=== PATIENT | male | born 1970 | race Two or more races ===

== ENCOUNTER 2025-04-17 10:51 | Inpatient (IN) | payer OTHER ==
[~2025-04-17] VITALS: Ht 185.4 cm; Wt 98.2 kg
--- NOTE | 2025-04-17 12:11 | ED.PDOC ---
History of Present Illness HPI Comments This is a 54-year-old male with past medical history of diabetes, paraplegic (due to prolapsed disc), brought to the hospital due to worsening perianal wound. Per patient, he has been wheelchair/bed-bound since 20 years, and also has a perianal wound for 20 years which has worsened since 1 month. He also rep orts of generalized weakness, decreased oral intake cough, shortness of breaths, and foul-smelling of perianal area. He denies fever, chest pain, nausea vomiting. He does not have control on bladder and bowel movement. Home meds: Metformin Chief Complaint: Wound Check Time Seen by MD: 10:53 Reviewed Notes: Nurses Notes Allergies: Coded Allergies: NO KNOWN ALLERGIES (Unverified , 04/17/25) Information Source: Patient Mode of Arrival: Wheelchair Past Medical History Past Medical History (Other): Diabetes Constitutional: reports: fatigue, weakness; denies: chills, diaphoresis, fever, malaise, sweats, others EENTM: denies: blurred vision, double vision, ear bleeding, ear discharge, ear drainage, ear pain, ear ringing, eye pain, eye redness, hearing loss, mouth pain, mouth swelling, nasal discharge, nose bleeding, nose congestion, nose pain, photophobia, tearing, throat pain, throat swelling, voice changes, others Respiratory: reports: cough, shortness of breath; denies: hemoptysis, orthopnea, SOB at rest, SOB with excertion, stridor, wheezing, others Cardiovascular: denies: chest pain, dizzy spells, diaphoresis, Dyspnea on exertion, edema, irregular heart beat, left arm pain, lightheadedness, palpitations, PND, syncope, others Gastrointestinal: denies: abdomen distended, abdominal pain, blood streaked bowels, constipated, diarrhea, dysphagia, difficulty swallowing, hematemesis, melena, nausea, poor appetite, poor fluid intake, rectal bleeding, rectal pain, vomiting, others Genitourinary: denies: burning, dysuria, flank pain, frequency, hematuria, incontinence, penile discharge, penile sore, pain, testicle pain, testicle swelling, urgency, others Neurological: denies: dizziness, fainting, headache, left sided numbness, left sided weakness, numbness, paresthesia, pre-existing deficit, right sided numbness, right sided weakness, seizure, speech problems, tingling, tremors, weakness, others Musculoskeletal: denies: back pain, gout, joint pain, joint swelling, muscle pa in, muscle stiffness, neck pain, others Integumetry: denies: bruises, change in color, change in hair/nails, dryness, laceration, lesions, lumps, rash, wounds, others Allergic/Immunocompromised: denies: Difficulty Healing, Frequent Infections, Hives, Itching, others Hematologic/Lymphatic: denies: anemia, blood clots, easy bleeding, easy bruising, swollen glands, others Endocrine: denies: excessive hunger, excessive sweating, excessive thirst, excessive urination, flushing, intolerance to cold, intolerance to heat, unexplained weight gain, unexplained weight loss, others Psychiatric: denies: anxiety, bipolar disorder, depression, hopeless, panic disorder, schizophrenia, sleepless, suicidal, others Physical Exam General Appearance: No Apparent Distress, Normal HEENT: Normal ENT Inspection, Pharynx Normal, TMs Normal Neck: Full Range of Motion, Non-Tender, Normal, Normal Inspection Respiratory: Chest Non-Tender, Lungs Clear, No Accessory Muscle Use, No Respiratory Distress, Normal Breath Sounds Cardiovascular: No Edema, No JVD, No Murmur, No Gallop, Normal Peripheral Pulses, Regular Rate/Rhythm Breast Exam: Deferred Gastrointestinal: No Organomegaly, Non Tender, No Pulsatile Mass, Normal Bowel Sounds, Soft Genitalia: Deferred Pelvic: Deferred Rectal: Deferred Extremities: No calf tenderness, Normal capillary refill, Normal inspection, Normal range of motion, Non-tender, No pedal edema Musculoskeletal : Apperance: Normal Neurologic: Alert, retort kiln burner II-XII nml as Tested, No Motor Deficits, Normal Affect, Normal Mood, No Sensory Deficits Cerebellar Function: Normal Reflexes: Normal Skin: Dry, Normal Color, Warm Lymphatic: No Adenopathy Was a procedure done? Was a procedure done?: No Differential Dx Considerations may include: Sepsis, perianal area infected wound, abscess, X-Ray, Labs, Meds, VS Vital Signs Date Time Temp Pulse Resp B/P (MAP) Pulse Ox O2 Delivery O2 Flow Rate FiO2 04/17/25 11:01 98.0 105 16 116/60 98 98.0 Lab Test 04/17/25 15:04/17/25 13:00 Range/Units Lactic Acid Level 2.6 *H 2.9 *H 0.4-2.0 mmol/L White Blood Count 15.8 H 4.4-10.8 10^3/uL Red Blood Count 3.33 L 4.5-5.90 10^6/uL Hemoglobin 7.8 L 13.5-17.5 g/dL Hematocrit 24.4 L 41.0-53.0 % Mean Corpuscular Volume 73.0 L 80.0-100.0 fL Mean Corpuscular Hemoglobin 23.4 L 28.0-32.0 pg Mean Corpuscular Hemoglobin Concent 32.1 32.0-36.0 g/dL Red Cell Distribution Width 18.9 H 11.8-14.3 % Platelet Count 372 140-450 10^3/uL Mean Platelet Volume 7.6 6.9-10.8 fL Neutrophils (%) (Auto) 37.0-80.0 % Lymphocytes (%) (Auto) 10.0-50.0 % Monocytes (%) (Auto) 0.0-12.0 % Eosinophils (%) (Auto) 0.0-7.0 % Basophils (%) (Auto) 0.0-2.0 % Neutrophils # (Auto) 1.6-8.6 10 ^3/uL Lymphocytes # (Auto) 0.4-5.4 10 ^3/uL Monocytes # (Auto) 0-1.3 10 ^3/uL Eosinophils # (Auto) 0-0.8 10 ^3/uL Basophils # (Auto) 0-0.2 10 ^3/uL Differential Total Cells Counted 100.0 100 Neutrophils % (Manual) 67 37.0-80.0 Band Neutrophils % (Manual) 31 Lymphocytes % (Manual) 2 L 10.0-50.0 Monocytes % (Manual) 0 0-12 Eosinophils % (Manual) 0 0-7 Basophils % (Manual) 0 0.0-2.0 Metamyelocytes % (manual) 0 Myelocytes % (Manual) 0 Promyelocytes % (Manual) 0 Blast Cells % (Manual) 0 Nucleated Red Blood Cells % Reactive Lymphocytes 0 Platelet Estimate Adequate Hypochromasia (manual) Moderate Microcytosis Moderate Ovalocytes Few Warren Cells Few Prothrombin Time 12.6 H 9.3-11.8 sec Prothrombin Time INR 1.21 H 0.9-1.15 Sodium Level 138 136-145 mmol/L Potassium Level 3.5 3.5-5.1 mmol/L Chloride Level 107 98-107 mmol/L Carbon Dioxide Level 16 L 20-31 mmol/L Anion Gap 15 5-15 Blood Urea Nitrogen 45 H 9-23 mg/dL Creatinine 2.01 H 0.700-1.30 mg/dL Glomerular Filtration Rate Calc 39 >90 mL/min BUN/Creatinine Ratio 22.4 H 10.0-20.0 Serum Glucose 167 H 74-106 mg/dL Calcium Level 7.9 L 8.7-10.4 mg/dL Total Bilirubin 0.9 0.2-1.0 mg/dL Aspartate Amino Transferase (AST) 37 13-40 U/L Alanine Aminotransferase (ALT) 36 7-40 U/L Alkaline Phosphatase 242 H 46-116 U/L Total Protein 6.9 5.7-8.2 g/dL Albumin 2.8 L 3.2-4.8 g/dL Time of 1ST Reevaluation: 17:07 Reevaluation 1ST: Unchanged Patient Education/Counseling: Diagnosis, Treatment, Prognosis, Need For Follow Up Family Education/Counseling: Diagnosis, Treatment, Prognosis, Need For Follow Up Comments Patient came to the hospital due to perineal area ulcer. Patient was vitally stable. CBC, CMP Check CT scan performed, showed Cardiomegaly, coronary artery disease, and small pericardial effusion, Bilateral lung base interstitial prominence and bilateral pleural effusion suggestive of CHF, Hepatosplenomegaly,Emphysematous cystitis, Extensive gas within the soft tissues of the left gluteal region, perineum, left adductor musculature, and left upper thigh with pelvic and upper thigh subcutaneous edema, greater on the left. This appearance is suggestive of gas forming bacterial infection. Recommend surgical consultation if not already obtained and Low volume pelvic ascites Patient was given IV fluid, vancomycin Rocephin. On subsequent checkup, patient was feeling the same. Patient will be admitted for inpatient care and possible expert opinion SEPSIS Sepsis Screen Date sepsis recognized/suspect: Apr 17, 2025 Time Sepsis recognized/suspect: 1103 Recent Procedure: No On Antibiotic Therapy: No Respiratory Rate >20: No Heart Rate >90: Yes Temp<36 C (96.8 F) or >38.3 C: No SBP <90 or MAP <65 mmHG: No New Acute Mental Status Change: No Is the patient on CPAP, BIPAP,: No Physician Orders Blood Culture (04/17/25 12:11) Wound Culture W/ Gs (04/17/25 12:11) * Wound Consult (04/17/25 ) Ct Ab Pel Wo Con-No Oral Or Iv (04/17/25 12:11) Vancomycin Per Pharmacy (04/17/25 12:15) Complete Blood Count (04/18/25 04:00) Creatinine (04/18/25 04:00) Vancomycin,Random (04/18/25 04:00) Vital Signs Date Time Temp Pulse Resp B/P (MAP) Pulse Ox O2 Delivery O2 Flow Rate FiO2 04/17/25 11:01 98.0 105 16 116/60 98 98.0 Laboratory Tests Test 04/17/25 13:00 04/17/25 15:21 Lactic Acid Level 2.9 mmol/L (0.4-2.0) *H 2.6 mmol/L (0.4-2.0) *H White Blood Count 15.8 10^3/uL (4.4-10.8) H Departure 1 Departure Time of Disposition: 17:09 Impression: Primary Impression: Sepsis Additional Impression: Decubitus ulcer, infected Disposition: ADMITTED INPATIENT Admit to: Med Surg Condition: Guarded Critical Care Note Critical Care Time?: Yes (45 min-critical care time only) Stability Stability form required: No Heart Score Heart Score: Heart Score Response (Comments) Value History N/A 0 EKG N/A 0 Age N/A 0 Risk Factors N/A 0 Troponin N/A 0 Total 0 OZZIE RAHMAN Apr 17, 2025 12:11
[2025-04-17] MEDS ORDERED: VANCOMYCIN PER PHARMACY 0 MG IV SCH (12:15)
--- NOTE | 2025-04-17 13:20 | DVH ---
EXAM: CT CT AB PEL WO CON-NO ORAL OR IV HISTORY: perineal area bedsore, abdominal pain COMPARISON: None TECHNIQUE: Helical CT images of the abdomen and pelvis were performed without IV contrast. Sagittal a nd coronal reformatted images were obtained. This CT exam was performed using one or more of the foll owing dose reduction techniques: Automated exposure control, adjustment of the mA and/or kv according to patient size, or the use of iterative reconstruction techniques. Radiation Dose: Abdomen/Pelvis: CTDIvol 17.5 mGy, DLP 1490.08 mGy*cm. FINDINGS: CT abdomen: There is interstitial prominence in the lung bases. There are small to moderate right an d small left pleural effusions. The heart is enlarged. There are coronary artery calcifications. The re is a small pericardial effusion. The central pulmonary arteries may be ectatic, not fully imaged here. There is mild bilateral gynecomastia. There is a left upper quadrant splenule. The liver measu res 20 cm longitudinal. The spleen measures 14 cm longitudinal. The noncontrast gallbladder, pancrea s, bilateral kidneys, and left adrenal gland are unremarkable. There is a right adrenal 15 mm nodule (image 30, series 2) with central density 4 HU on this noncontrast study. No abdominal aortic aneurys m. There are atherosclerotic calcifications of the abdominal aorta and major branches. 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 There are mildly e nlarged periaortic retroperitoneal lymph nodes distally, likely reactive. CT pelvis: No abnormal bowel dilatation or free air. The appendix is not dilated. There is low volum e free fluid in the pelvis. There are small bilateral fatty inguinal indirect hernias. There is gas w ithin the wall of the urinary bladder. There is urinary bladder wall thickening. There is extensive gas in the soft tissues of the left gluteal region, perineum, adductor musculature and upper thigh in volving subcutaneous fat, muscles, and intermuscular fascia. A small amount of gas crosses the midlin e to the right perineum. There is subcutaneous fat of the pelvis and thighs, greater on the left. No evidence of formed abscess at this time. Gas abuts the left ischial tuberosity without evidence of ad vanced osteomyelitis at this time. There is advanced lumbar degenerative disc disease and facet arthr opathy. There is severe right and moderate to severe left hip osteoarthritis, with vacuum phenomenon in the right hip. IMPRESSION: 1. Cardiomegaly, coronary artery disease, and small pericardial effusion. 2. Bilateral lung base interstitial prominence and bilateral pleural effusion suggestive of CHF. 3. Hepatosplenomegaly. 4. Emphysematous cystitis. 5. Extensive gas within the soft tissues of the left gluteal region, perineum, left adductor musculat ure, and left upper thigh with pelvic and upper thigh subcutaneous edema, greater on the left. This a ppearance is suggestive of gas forming bacterial infection. Recommend surgical consultation if not a lready obtained. 6. Low volume pelvic ascites. 7. Advanced lumbar degenerative disc disease and facet arthropathy; severe right and moderate to madonna re left hip osteoarthritis. 8. No evidence of bowel obstruction, acute appendicitis, or other acute process in the abdomen or pel vis.
[2025-04-17 13:51] LABS: Hemoglobin 7.8 g/dL (13.5-17.5); Mean Corpuscular Hemoglobin 23.4 pg (28.0-32.0); Mean Corpuscular Volume 73.0 fL (80.0-100.0)
[2025-04-17 13:57] LABS: Hematocrit 24.4 % (41.0-53.0)
[2025-04-17 14:00] LABS: Alanine Aminotransferase 36 U/L (7-40); Anion Gap 15 (5-15); BUN/Creatinine Ratio 22.4 (10.0-20.0); Bilirubin, Total 0.9 mg/dL (0.2-1.0); Chloride 107 mmol/L (98-107); Sodium 138 mmol/L (136-145); Total Protein 6.9 g/dL (5.7-8.2)
[2025-04-17 14:01] LABS: Albumin 2.8 g/dL (3.2-4.8); Alkaline Phosphatase 242 U/L (46-116); Blood Urea Nitrogen 45 mg/dL (9-23); Calcium 7.9 mg/dL (8.7-10.4); Carbon Dioxide 16 mmol/L (20-31); Glucose 167 mg/dL (74-106); Potassium 3.5 mmol/L (3.5-5.1)
[2025-04-17 14:06] LABS: Lactic Acid w/Reflex 2.9 mmol/L (0.4-2.0)
[2025-04-17 14:20] LABS: INR 1.21 (0.9-1.15); Prothrombin Time 12.6 sec (9.3-11.8)
[2025-04-17 14:42] LABS: Total Cells Counted 100.0 (100)
[2025-04-17 14:43] LABS: Ovalocytes FEW
[2025-04-17] MEDS: SODIUM CHLORIDE 0.9% 1,000 ML IV ONE (18:50)
--- NOTE | 2025-04-17 20:28 | ECG ---
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
[2025-04-17] MEDS: SODIUM CHLORIDE 0.9% 500 ML IV ONE (21:30)
--- NOTE | 2025-04-17 22:14 | DVH ---
CHEST RADIOGRAPH Indication: chf Technique: 1 view Comparison: None FINDINGS: Lines and Tubes: None Lungs/Pleura: No focal consolidation, pleural effusion or pneumothorax. Cardiomediastinum: Unremarkable. Other: No acute osseous abnormality. IMPRESSION: 1. No acute cardiopulmonary abnormality.
[2025-04-17 22:50] LABS: Lactic Acid w/Reflex 3.3 mmol/L (0.4-2.0)
--- NOTE | 2025-04-17 23:31 | DVHHPRES ---
History of Present Illness Resident Creating Document: FRANK SHETH RESIDENT History of Present Illness 54-year-old male patient with past medical history of diabetes mellitus, paraplegia due to prolapsed S2 presented with complaints of worsening perineal wound pain. Patient has been wheelchair-bound for last 20 years and had bedsores patient has worsened since last one one. He also mentioned complaints of generalized weakness, decreased oral intake, shortness of breath and foul- smelling of perineal area. Denied chest pain, nausea, vomiting Past medical history Diabetes mellitus, paraplegia, prolapsed disc Past surgical No recent surgery Allergic history No known allergies Review of Systems Review of Systems As described in the HPI Allergies: Coded Allergies: NO KNOWN ALLERGIES (Unverified , 04/17/25) Medications Current Medications Medications Dose Ordered Sig/Jackson Route Start Time Stop Time Status Last Admin Dose Admin Vancomycin HCl 0 ml @ 0 mls/hr UD IV 04/17/25 12:15 Meropenem 50 ml @ 17 mls/hr Q12HR IV 04/18/25 10:00 Exam Vital Signs Vital Signs Date Time Temp Pulse Resp B/P (MAP) Pulse Ox O2 Delivery O2 Flow Rate FiO2 04/17/25 20:10 94 04/17/25 20:01 97.5 20 89/50 (63) 100 97.5 Exam Examination General Appearance: Alert, Oriented X3, Cooperative, No acute distress HEENT: EOMI Respiratory: Clear to auscultation, Normal air movement Cardiovascular: Regular rate, Normal S1, Normal S2 Abdominal: Normal bowel sounds Extremities: No cyanosis, No edema, Normal pulses, No tenderness/swelling Skin: No rashes, No breakdown Neuro: Normal speech and tone Perineal examination, swelling and tenderness in scrotum and groin region, wound draining abscess Labs/Xrays Labs Test 04/17/25 21:55 04/17/25 13:00 Range/Units Lactic Acid Level 3.3 *H 0.4-2.0 mmol/L Troponin I High Sensitivity 36 </=54 ng/L White Blood Count 15.8 H 4.4-10.8 10^3/uL Red Blood Count 3.33 L 4.5-5.90 10^6/uL Hemoglobin 7.8 L 13.5-17.5 g/dL Hematocrit 24.4 L 41.0-53.0 % Mean Corpuscular Volume 73.0 L 80.0-100.0 fL Mean Corpuscular Hemoglobin 23.4 L 28.0-32.0 pg Mean Corpuscular Hemoglobin Concent 32.1 32.0-36.0 g/dL Red Cell Distribution Width 18.9 H 11.8-14.3 % Platelet Count 372 140-450 10^3/uL Mean Platelet Volume 7.6 6.9-10.8 fL Neutrophils (%) (Auto) 37.0-80.0 % Lymphocytes (%) (Auto) 10.0-50.0 % Monocytes (%) (Auto) 0.0-12.0 % Eosinophils (%) (Auto) 0.0-7.0 % Basophils (%) (Auto) 0.0-2.0 % Neutrophils # (Auto) 1.6-8.6 10 ^3/uL Lymphocytes # (Auto) 0.4-5.4 10 ^3/uL Monocytes # (Auto) 0-1.3 10 ^3/uL Eosinophils # (Auto) 0-0.8 10 ^3/uL Basophils # (Auto) 0-0.2 10 ^3/uL Differential Total Cells Counted 100.0 100 Neutrophils % (Manual) 67 37.0-80.0 Band Neutrophils % (Manual) 31 Lymphocytes % (Manual) 2 L 10.0-50.0 Monocytes % (Manual) 0 0-12 Eosinophils % (Manual) 0 0-7 Basophils % (Manual) 0 0.0-2.0 Metamyelocytes % (manual) 0 Myelocytes % (Manual) 0 Promyelocytes % (Manual) 0 Blast Cells % (Manual) 0 Nucleated Red Blood Cells % Reactive Lymphocytes 0 Platelet Estimate Adequate Hypochromasia (manual) Moderate Microcytosis Moderate Ovalocytes Few [place] Cells Few Prothrombin Time 12.6 H 9.3-11.8 sec Prothrombin Time INR 1.21 H 0.9-1.15 Sodium Level 138 136-145 mmol/L Potassium Level 3.5 3.5-5.1 mmol/L Chloride Level 107 98-107 mmol/L Carbon Dioxide Level 16 L 20-31 mmol/L Anion Gap 15 5-15 Blood Urea Nitrogen 45 H 9-23 mg/dL Creatinine 2.01 H 0.700-1.30 mg/dL Glomerular Filtration Rate Calc 39 >90 mL/min BUN/Creatinine Ratio 22.4 H 10.0-20.0 Serum Glucose 167 H 74-106 mg/dL Calcium Level 7.9 L 8.7-10.4 mg/dL Total Bilirubin 0.9 0.2-1.0 mg/dL Aspartate Amino Transferase (AST) 37 13-40 U/L Alanine Aminotransferase (ALT) 36 7-40 U/L Alkaline Phosphatase 242 H 46-116 U/L B-Type Natriuretic Peptide 1174.26 0-100 pg/mL Total Protein 6.9 5.7-8.2 g/dL Albumin 2.8 L 3.2-4.8 g/dL SEPSIS Sepsis Screen Date sepsis recognized/suspect: Apr 17, 2025 Time Sepsis recognized/suspect: 1102 Recent Procedure: No On Antibiotic Therapy: No Respiratory Rate >20: No Heart Rate >90: Yes Temp<36 C (96.8 F) or >38.3 C: No SBP <90 or MAP <65 mmHG: No New Acute Mental Status Change: No Is the patient on CPAP, BIPAP,: No Physician Orders Admit (04/17/25 21:30) Oxygen By Nasal Cannula (04/17/25 21:30) Stat Ekg For Chest Pain (04/17/25 21:30) Notify Md Of Changes From Base (04/17/25 21:30) Stringer Machine Tender For 24 Hours (04/17/25 21:30) Emergency Dysrhythmia Protocol (04/17/25 21:30) Rhythm Strips Once Every Shift (04/17/25 21:30) Chest Xray 1 View (04/17/25 21:30) Electrocardigram (04/17/25 21:30) Troponin-I Hs (04/17/25 22:30) Troponin-I Hs (04/18/25 00:30) Urine Bacterial Culture (04/17/25 21:30) * Surgical Consult (04/17/25 ) Npo (Nothing By Mouth) Diet (04/18/25 Breakfast) Meropenem 1gm Ivpb (Merrem 1gm/50ml) (04/18/25 10:00) Vital Signs Date Time Temp Pulse Resp B/P (MAP) Pulse Ox O2 Delivery O2 Flow Rate FiO2 04/17/25 20:10 94 04/17/25 20:01 97.5 95 20 89/50 (63) 100 97.5 Laboratory Tests Test 04/17/25 13:00 04/17/25 15:21 04/17/25 21:55 Lactic Acid Level 2.9 mmol/L (0.4-2.0) *H 2.6 mmol/L (0.4-2.0) *H 3.3 mmol/L (0.4-2.0) *H White Blood Count 15.8 10^3/uL (4.4-10.8) H Medications Medications Dose Ordered Sig/Jackson Route Start Time Stop Time Status Last Admin Dose Admin Ceftriaxone Sodium 50 ml @ 100 mls/hr ONCE ONCE IV 04/17/25 12:15 04/17/25 12:44 DC 04/17/25 19:01 100 MLS/HR Sodium Chloride 1,000 ml @ 1,000 mls/hr Q1H ONCE IV 04/17/25 12:15 04/17/25 13:14 DC 04/17/25 18:50 1,000 MLS/HR Assessment/Plan Assessment/Plan Assessment/plan # sepsis with septic shock due to infected perineal wound IV fluid Vancomycin and marijuana Blood culture MRSA Lactic acid Started on norepinephrine drip # infected perineal wound CT shows: Extensive gas within the soft tissues of the left gluteal region, perineum, left adductor musculature, and left upper thigh with pelvic and upper thigh subcutaneous edema, greater on the left. This appearance is suggestive of gas forming bacterial infection. Recommend surgical consultation if not already obtained. Surgical consult IV antibiotics # complicated emphysematous cystitis IV antibiotics # JUAN CARLOS due to sepsis due to VMN IV fluids Monitor # diabetes mellitus likely type 2 Mild sliding scale insulin # severe anemia Monitor # coagulopathy due to sepsis Monitor # coronary artery disease As seen on CT # cardiomegaly likely due to CHF As seen on CT # small pericardial effusion likely due to CHF As seen on CT # hepatosplenomegaly Seen on CT # low volume pelvic ascites As seen on CT PPD prophylaxis IV Protonix DVT prophylaxis Lovenox Code status, discussed with the patient for greater than 21 minutes full code Critical care time excluding procedures is 63 minutes Case discussion with Dr. Qureshi Plan discussed with: Patient, Other My Orders Orders - FRANK SHETH RESIDENT Procedure Category Date Status Time Admit ADMIT 04/17/25 Transmitted 21:30 Oxygen By Nasal RT 04/17/25 Transmitted Cannula 21:30 Stat Ekg For Chest CONSUELO 04/17/25 In Process Pain 21:30 Notify Md Of Changes [facility] 04/17/25 In Process From Base 21:30 Stringer Machine Tender For [facility] 04/17/25 In Process 24 Hours 21:30 Emergency Dysrhythmia [facility] 04/17/25 In Process Protocol 21:30 Rhythm Strips Once [facility] 04/17/25 In Process Every Shift 21:30 Chest Xray 1 View XY 04/17/25 Resulted 21:30 Electrocardigram EKG 04/17/25 Logged 21:30 Troponin-I Hs LAB 04/17/25 Logged 22:30 Troponin-I Hs LAB 04/18/25 Verified 00:30 Urine Bacterial [place] 04/17/25 Logged Culture 21:30 * Surgical Consult CONS 04/17/25 Transmitted Npo (Nothing By DIET 04/18/25 Transmitted Mouth) Diet Breakfast Meropenem 1gm Ivpb PHA 04/18/25 In Process (Merrem 1gm/50ml) 10:00 Date of Service: Apr 17, 2025 Billing Provider: BALBIR QURESHI MD Common Visit Codes: [id number] CARE 30-74 MIN FRANK SHETH RESIDENT Apr 17, 2025 23:31 BALBIR QURESHI MD Apr 20, 2025 13:27
[2025-04-17] MEDS: CLINDAMYCIN 300MG IV 50 ML IV SCH (23:36)
[2025-04-17 23:49] VITALS: PULSE 99; RESP 14; O2SAT 0
[2025-04-18] VITALS (24 sets, daily range): BP systolic 77–140; BP diastolic 41–68; PULSE 96–113; RESP 15–38; TEMP 98.1; O2SAT 73–100
[2025-04-18] MEDS: VANCOMYCIN 1GM/250ML KIT 250 ML IV ONE (00:14)
[2025-04-18] MEDS: VANCOMYCIN 1.5GM/250ML 250 ML IV ONE (00:20)
[2025-04-18] MEDS: POTASSIUM CHL 20MEQ/100ML 100 ML IV ONE (00:33)
[2025-04-18] MEDS: SODIUM CHLORIDE 0.9% 1,000 ML IV ONE (00:45)
[2025-04-18] MEDS: MEROPENEM 1GM IVPB 50 ML IV ONE (00:46)
[2025-04-18] MEDS: SODIUM CHLORIDE 0.9% 250 ML IV ONE ×2 (04:00→06:29)
[2025-04-18] MEDS: ACETAMINOPHEN 325 MG TAB PO PRN (04:55)
[2025-04-18 06:09] LABS: Hemoglobin 7.2 g/dL (13.5-17.5)
[2025-04-18 06:12] LABS: Hematocrit 22.6 % (41.0-53.0); Mean Corpuscular Hemoglobin 23.3 pg (28.0-32.0); Mean Corpuscular Volume 72.8 fL (80.0-100.0)
[2025-04-18] MEDS: NOREPINEPHRINE 8 MG/250ML KIT 250 ML IV SCH (06:40)
[2025-04-18 07:04] LABS: Total Cells Counted 100.0 (100)
[2025-04-18 07:05] LABS: Ovalocytes FEW
[2025-04-18] MEDS ORDERED: DEXTROSE (50%) 50ML SYRG IV PRN (09:00)
[2025-04-18] MEDS ORDERED: MEROPENEM 1GM IVPB 50 ML IV SCH (10:00)
[2025-04-18] MEDS: PANTOPRAZOLE 40 MG/10 ML VIAL INJ IV SCH (10:00)
--- NOTE | 2025-04-18 10:02 | DVHINCON2 ---
Consultation - Surgical Date Seen: Apr 18, 2025 Referring Physician Reason for Consultation Concern for necrotizing infection of the scrotum and left thigh History of Present Illness History of Present Illness Mr. Anthony is a 54-year-old male who presented to the hospital yesterday with complaints of left inguinal area open wound that is infected. Patient does not ambulate for the past approximately 20 years, moves a running he is wheelchair and has been suffering from decubitus or ulcers ever since. This ulcer in the left inguinal area developed approximately 4 weeks ago, it progressively got worse and eventually started draining per purulent material approximately 3 weeks ago. Patient has been trying to take care of it at home but states he is feeling sicker, generally weak, no appetite, with subjective fevers. In the past he had necrotizing infection of the right thigh/buttock area requiring multiple operations, ICU stay and Plastic surgery to cover the defect. Past Medical/Surgical History Past Medical/Surgical History Diabetes, heart attack 20 years ago, decubitus ulcers PSH right thigh/gluteal area multiple surgeries due to necrotizing infection Family and Social History Family and Social History Family history unremarkable ETOH/T Ob/drugs denies Allergies and medications Allergies: Coded Allergies: NO KNOWN ALLERGIES (Unverified , 04/17/25) Review of systems Review of Systems: HEENT:Normal, CVS:Abnormal (Hypotensive), RESPIRATORY:Abnormal (Short of breath), GI:Abnormal (Loss of appetite), :Abnormal (See HPI), MSK:Abnormal (See HPI), NEURO:Abnormal (Wheelchair-bound due to back problems) Examination Vital signs Vital Signs Date Time Temp Pulse Resp B/P (MAP) Pulse Ox O2 Delivery O2 Flow Rate FiO2 04/18/25 08:45 99 20 101/50 (67) 100 04/18/25 08:00 97.7 97.7 04/18/25 07:30 Room Air* 0 21 Medications Current Medications Medications (Trade) Dose Ordered Sig/Jackson Route PRN Reason Start Time Stop Time Status Last Admin Vancomycin HCl 0 ml @ 0 mls/hr UD IV 04/17/25 12:15 Meropenem 50 ml @ 17 mls/hr Q12HR IV 04/18/25 10:00 Acetaminophen (Tylenol Tablet) 650 mg Q4HP PRN PO PAIN SCALE 1-3 OR TEMP>100.4 04/18/25 05:00 04/18/25 04:55 Norepinephrine Bitartrate 250 ml @ 3.75 mls/hr Q24H IV 04/18/25 06:30 04/18/25 06:40 Diagnostic Test (Pha) (Accu-Chek Comfort Curve T) 1 strip Q6HR 04/18/25 12:00 Insulin Human Regular (InsuLIN R) Q6HR SC 04/18/25 12:00 Dextrose 50 ml UD PRN IV Blood Sugar LESS THAN 60 04/18/25 09:00 Pantoprazole Sodium (Protonix) 40 mg DAILY IV 04/18/25 10:00 Laboratory Labs Test 04/18/25 05:17 04/18/25 02:24 04/17/25 21:55 04/17/25 13:00 Range/Units White Blood Count 26.0 #H 4.4-10.8 10^3/uL Red Blood Count 3.10 L 4.5-5.90 10^6/uL Hemoglobin 7.2 L 13.5-17.5 g/dL Hematocrit 22.6 L 41.0-53.0 % Mean Corpuscular Volume 72.8 L 80.0-100.0 fL Mean Corpuscular Hemoglobin 23.3 L 28.0-32.0 pg Mean Corpuscular Hemoglobin Concent 32.0 32.0-36.0 g/dL Red Cell Distribution Width 19.0 H 11.8-14.3 % Platelet Count 340 140-450 10^3/uL Mean Platelet Volume 7.8 6.9-10.8 fL Neutrophils (%) (Auto) 37.0-80.0 % Lymphocytes (%) (Auto) 10.0-50.0 % Monocytes (%) (Auto) 0.0-12.0 % Basophils (%) (Auto) 0.0-2.0 % Neutrophils # (Auto) 1.6-8.6 10 ^3/uL Lymphocytes # (Auto) 0.4-5.4 10 ^3/uL Monocytes # (Auto) 0-1.3 10 ^3/uL Differential Total Cells Counted 100.0 100 Neutrophils % (Manual) 85 H 37.0-80.0 Band Neutrophils % (Manual) 12 Lymphocytes % (Manual) 2 L 10.0-50.0 Monocytes % (Manual) 1 0-12 Eosinophils % (Manual) 0 0-7 Basophils % (Manual) 0 0.0-2.0 Metamyelocytes % (manual) 0 Myelocytes % (Manual) 0 Promyelocytes % (Manual) 0 Blast Cells % (Manual) 0 Reactive Lymphocytes 0 Platelet Estimate Adequate Hypochromasia (manual) Moderate Microcytosis Moderate Ovalocytes Few Mimi Cells Few Creatinine 2.18 H 0.700-1.30 mg/dL Glomerular Filtration Rate Calc 35 >90 mL/min Random Vancomycin Level < 3.0 L 5-10 ug/mL Troponin I High Sensitivity 33 </=54 ng/L Lactic Acid Level 3.3 *H 0.4-2.0 mmol/L Eosinophils (%) (Auto) 0.0-7.0 % Eosinophils # (Auto) 0-0.8 10 ^3/uL Basophils # (Auto) 0-0.2 10 ^3/uL Nucleated Red Blood Cells % Prothrombin Time 12.6 H 9.3-11.8 sec Prothrombin Time INR 1.21 H 0.9-1.15 Sodium Level 138 136-145 mmol/L Potassium Level 3.5 3.5-5.1 mmol/L Chloride Level 107 98-107 mmol/L Carbon Dioxide Level 16 L 20-31 mmol/L Anion Gap 15 5-15 Blood Urea Nitrogen 45 H 9-23 mg/dL BUN/Creatinine Ratio 22.4 H 10.0-20.0 Serum Glucose 167 H 74-106 mg/dL Calcium Level 7.9 L 8.7-10.4 mg/dL Total Bilirubin 0.9 0.2-1.0 mg/dL Aspartate Amino Transferase (AST) 37 13-40 U/L Alanine Aminotransferase (ALT) 36 7-40 U/L Alkaline Phosphatase 242 H 46-116 U/L B-Type Natriuretic Peptide 1174.26 0-100 pg/mL Total Protein 6.9 5.7-8.2 g/dL Albumin 2.8 L 3.2-4.8 g/dL Examination: GENERAL:Abnormal (Patient is short of breath), SKIN:Abnormal (Scrotum: Erythematous, with 2 areas of active drainage (pus), tender, crepitus. Left growing area with erythema, large open wound with necrotic tissue and foul smell, surrounding erythema and crepitus. Left thigh edema, erythema, crepitus, no active drainage, or wounds) Problem List/Assessment/Plan Problems: (1) Necrotizing subcutaneous infection Assessment and Plan Mr. Anthony is a 54-year-old male who presented with an infected wound in the left groin area with necrotic tissue, also has edema and erythema of the scrotal area with active pus drainage. Physical exam and I also found crepitus on the left thigh. CT shows air tracking in the subcutaneous tissue of the scrotum and the left thigh. This findings along with his rising white count to 26 and hypotension are concerning for necrotizing fasciitis versus necrotizing soft tissue infection. Patient will need emergent OR debridement. Procedure, risks, benefits, alternatives, and complications discussed with the patient. I explained to the patient that these types of infections without operative debridement carry a 100% mortality rate, and mortality is still high despite operative debridement. Patient understood all this. N 1. To OR emergently for sharp excisional debridement 2. Continue with broad-spectrum antibiotics 3. NPO Plan discussed with Plan discussed with: Patient Visit Coding Surgery Date of Service if different f: Apr 18, 2025 Billing Provider: ABBIE GUTHRIE MD Surgery Visit Codes: 73528 - INP CONSULT <110 MIN ABBIE GUTHRIE MD Apr 18, 2025 10:02
[2025-04-18] MEDS ORDERED: PROPOFOL 10 MG/ML 20 ML IV ONE ×2 (10:38→12:25)
[2025-04-18] MEDS ORDERED: LIDOCAINE 1% INJ PF 5ML AMP ONE (10:38)
[2025-04-18] MEDS ORDERED: MIDAZOLAM HCL 2MG/2ML 2ml VIAL (1mg/ml) ONE (10:38)
[2025-04-18] MEDS ORDERED: ONDANSETRON HCL 4 MG/2 ML VIAL ONE (10:38)
[2025-04-18] MEDS ORDERED: fentaNYL CITRATE 100 MCG/2 ML VL ONE (10:38)
[2025-04-18] MEDS ORDERED: KETAMINE 50mg/ML 10ml Vial 10 ML ONE (10:38)
[2025-04-18] MEDS ORDERED: METOCLOPRAMIDE HCL 5MG/ml INJ 2ml VIAL IV PRN (10:45)
[2025-04-18] MEDS: KETOROLAC TROMETH 30 MG/ML 1ML VIAL IV ONE (10:45)
[2025-04-18] MEDS ORDERED: MORPHINE SULFATE INJ 2 MG/ml SYRG IV PRN (10:45)
[2025-04-18] MEDS ORDERED: MORPHINE SULFATE 4 MG/ML SYR/VIAL IV PRN (10:45)
[2025-04-18] MEDS ORDERED: HYDROmorphone HCL 2 MG/ML VL/or syr IV PRN ×2 (10:45)
[2025-04-18] MEDS: PIPERACILLIN-TAZOB 3.375GM 100 ML IV SCH (11:00)
[2025-04-18] MEDS ORDERED: VANCOMYCIN PER PHARMACY 0 MG IV SCH (11:00)
[2025-04-18] MEDS: InsuLIN REG 1unit/0.01ml Soln (100units/ml) SC SCH (12:00)
[2025-04-18] MEDS: ACCU-CHEK COMFORT CURVE STRIP VI SCH (12:00)
[2025-04-18 12:14] LABS: Iron 12.0 ug/dL (65-175)
[2025-04-18 12:17] LABS: Alanine Aminotransferase 36 U/L (7-40); Anion Gap 17 (5-15); BUN/Creatinine Ratio 24.6 (10.0-20.0); Bilirubin, Total 0.9 mg/dL (0.2-1.0); Sodium 141 mmol/L (136-145); Total Protein 6.6 g/dL (5.7-8.2)
[2025-04-18 12:22] LABS: Total Iron Binding Capacity 203.0 ug/dL (250-425)
[2025-04-18 12:23] LABS: Albumin 2.7 g/dL (3.2-4.8); Alkaline Phosphatase 187 U/L (46-116); Blood Urea Nitrogen 55 mg/dL (9-23); Calcium 7.7 mg/dL (8.7-10.4); Carbon Dioxide 15 mmol/L (20-31); Chloride 109 mmol/L (98-107); Creatine Kinase IFCC 570 U/L (46-171); Glucose 181 mg/dL (74-106); Potassium 3.5 mmol/L (3.5-5.1)
--- NOTE | 2025-04-18 13:37 | DVHPNRES ---
Progress Note Date Seen: Apr 18, 2025 Resident Creating Document: HALEY DELANEY RESIDENT Medical Necessity Reason Pt with a Central, PICC or Fol: Yes The following are medically ne: Central Line, Gillis Catheter Subjective Review of Systems This is a 54-year-old male patient with type 2 diabetes mellitus, hypertension, history of intubation and cardiac arrest 20 years back, bed-bound/wheelchair-bound, multiple decubitus ulcers, urinary and bowel incontinence, not on any medications who was brought to the ER by family for the evaluation of left groin draining wound and scrotal swelling for the past 4 weeks, patient reports that it started as swelling of scrotum which increased in size, later popped open and started to drain purulent material with foul smelling. He denies fever but reports chills, generalized weakness low appetite. Denies shortness of breaths or abdominal pain. On arrival to the ER, patient was septic, CT abdomen showing possible necrotizing fasciitis versus necrotizing superficial infection, patient was started on IV antibiotics and received IV fluids, surgical consultation was placed and patient is undergoing debridement versus fasciotomy 04/18. Past medical/surgical history: type 2 diabetes mellitus, hypertension, history of intubation and cardiac arrest 20 years back, bed-bound/wheelchair-bound, multiple decubitus ulcers, urinary and bowel incontinence, not on any medications Home medications: Denies Social history: Lives with , son, denies smoking/drinking/drug use PCP: Dr. Lamb Patient seen and examined in the preop area. Requiring Levophed at 4 mcg. IV Zosyn/clindamycin/vanc. Patient underwent Sharp excisional debridement of left groin, left medial thigh, left buttock, left ischiorectal fossa Objective vital signs Vital Sign Date Time Temp Pulse Resp B/P (MAP) Pulse Ox O2 Delivery O2 Flow Rate FiO2 04/18/25 09:30 101 18 100 Room Air* 0 21 04/18/25 09:30 97.8 112/64 (80) 97.8 medications Current Medications Medications Dose Ordered Sig/Jackson Route Start Time Stop Time Status Last Admin Dose Admin Vancomycin HCl 0 ml @ 0 mls/hr UD IV 04/17/25 12:15 Acetaminophen 650 mg Q4HP PRN PO 04/18/25 05:00 04/18/25 04:55 650 MG Norepinephrine Bitartrate 250 ml @ 3.75 mls/hr Q24H IV 04/18/25 06:30 04/18/25 06:40 3.75 MLS/HR Diagnostic Test (Pha) 1 strip Q6HR 04/18/25 12:00 Insulin Human Regular Q6HR SC 04/18/25 12:00 Dextrose 50 ml UD PRN IV 04/18/25 09:00 Pantoprazole Sodium 40 mg DAILY IV 04/18/25 10:00 Morphine Sulfate 2 mg Q4H PRN IV 04/18/25 10:45 04/18/25 14:46 Vancomycin HCl 0 ml @ 0 mls/hr UD IV 04/18/25 11:00 UNV Piperacillin Sod/ Tazobactam Sod 100 ml @ 25 mls/hr Q8HR IV 04/18/25 11:00 Clindamycin Phosphate 50 ml @ 50 mls/hr Q8HR IV 04/18/25 14:00 Examination Patient lying in bed, alert and oriented General: Afebrile, palor, mucosae are moist Cardiovascular: Tachycardic but Regular S1 and S2. No murmurs, gallops or rubs. No JVD elevation. 1+ pitting pedal edema bilaterally Respiratory: Decreased bilateral breath sounds Abdomen: Soft, nontender, nondistended, hypoactive bowel sounds, no rebound tenderness, no organomegaly, no masses Genitourinary: Has a Gillis catheter, scrotum is swollen and erythematous, medial to the scrotum on the left side - draining wound with grayish exudative discharge, foul smelling, similar draining wounds on the coccyx area. MSK/skin: Skin is dry and warm Neurological: Pupils are isocoric and reactive. Psych/Mental Status: A/Ox3 laboratory and microbiology Laboratory Tests 04/18/25 05:17 Test 04/18/25 05:17 Range/Units Serum Glucose 181 H 74-106 mg/dL Microbiology Date/Time Source Procedure Growth Status 04/17/25 13:00 Blood Blood Culture - Preliminary Resulted Labs and/or images reviewed: Labs reviewed by me, Image(s) reviewed by me Problem List/Assessment/Plan Problem List/Assessment/Plan NEURO: Bed-bound/wheelchair-bound Urinary and bowel incontinence History of multiple herniation Monitor Q.2h turns Aspiration and head of bed elevation precautions CARDIOVASCULAR: Probable congestive heart failure Septic Shock secondary to necrotizing fasciitis/necrotizing superficial infection s/p excisional debridement Volume overload History of hypertension Lactic acidosis Requiring Levophed, vasopressin Stress dose steroids started 04/18 hydrocortisone Q 50 mg IV NS 100 cc an hour BNP 1000 Echo pending PULMONARY: Pulmonary edema history of intubation and cardiac arrest [address] scan shows Bilateral lung base interstitial prominence and bilateral pleural effusion suggestive of CHF. GASTROINTESTINAL: Low volume ascites Monitor GENITOURINARY: JUAN CARLOS secondary to hemodynamically mediated/VMN ? Chronic kidney disease Likely Acute complicated cystitis Anion gap metabolic acidosis secondary to uremia CT scan abdomen shows emphysematous cystitis, UA pending Follow up with a UA, urine electrolytes Gillis placed HEMATOLOGY: Anemia likely iron-deficiency anemia/chronic kidney disease Requiring blood transfusion One packed RBC transfusion Repeat H&H pending METABOLIC: Severe protein calorie malnutrition, albumin Uncontrolled Diabetes mellitus type 2-A1c 9.9 Mild ISS SPINAL: Multiple herniated disc CT scan abdomen shows Advanced lumbar degenerative disc disease and facet arthropathy; severe right and moderate to severe left hip osteoarthritis. INFECTIOUS DISEASE: Septic shock due to necrotizing fasciitis/superficial infection Bacteremia Decubitus ulcer - present on admission Prelim blood culture showing Gram-positive cocci in pairs and chains Extensive gas within the soft tissues of the left gluteal region, perineum, left adductor musculature, and left upper thigh with pelvic and upper thigh subcutaneous edema, greater on the left. This appearance is suggestive of gas forming bacterial infection. Recommend surgical consultation if not already obtained. IV Zosyn, IV vancomycin, IV clindamycin starting 04/18 DIET: NPO DVT prophylax: SCDs given anemia GI prophylaxis: Protonix twice daily Bowel regimen: On hold Code status: Full code LINES/DRAINS/ACCESS: IV access: Left IJ CVC 04/18 Drips: Versed, fentanyl, Levophed, vasopressin Gillis catheter: 04/17 DISPOSITION: ICU Patient's status discussed with patient's , and son in which all questions have been answered Goals of care discussed with patient's family for over 18 minutes, full code status Critical care time spent more than 81 minutes, including patient care, chart review, and updating the family. Excluding any procedures Case discussed with Dr. De La Rosa Plan discussed with: Patient, Spouse (Over lobby), Son My Orders My Orders Orders - HALEY DELANEY Procedure Category Date Status Time Urine LAB 04/18/25 Logged Protein/Creatinine 10:36 Urine Sodium LAB 04/18/25 Logged 10:36 Urinalysis LAB 04/18/25 Logged 10:36 Strict I & O CONSUELO 04/18/25 In Process 10:36 Strict Aspiration CONSUELO 04/18/25 In Process Precautions 10:36 Npo (Nothing By DIET 04/18/25 Transmitted Mouth) Diet Lunch Echo 2d Mode Cardiac US 04/18/25 Logged DOP 10:41 Piperacillin-Tazob PHA 04/18/25 In Process 3.375gm (Zosyn 3.375g 11:00 Clindamycin 300mg Iv PHA 04/18/25 In Process (Cleocin Iv) 14:00 Administer Blood CONSUELO 04/18/25 In Process Products 11:02 Packedcell-Noactive BBK 04/18/25 Logged Bleeding 11:02 Type And Screen BBK 04/18/25 Logged 11:02 Lactic Acid W/ Reflex LAB 04/18/25 Logged Order 11:39 Date of Service: Apr 18, 2025 Billing Provider: MIKE DE LA ROSA MD Common Visit Codes: 64153-[id number] CARE 30-74 MIN, 01312-[id number] CARE-EACH +30MIN HALEY DELANEY RESIDENT Apr 18, 2025 13:37 MIKE DE LA ROSA MD Apr 19, 2025 15:33
[2025-04-18 14:11] LABS: Lactic Acid w/Reflex 5.8 mmol/L (0.4-2.0)
[2025-04-18] MEDS: ACCU-CHEK COMFORT CURVE STRIP VI ONE (14:38)
[2025-04-18] MEDS: VASOPRESSIN 20 UNITS in SODIUM CHL 0.9% 99 ML IV SCH (14:48)
[2025-04-18] MEDS: CLINDAMYCIN 300MG IV 50 ML IV ONE (15:40)
--- NOTE | 2025-04-18 16:07 | DVHOP2 ---
Operative Report - 2 Report Details Date: 04/18/25 Preop Diagnosis: Necrotizing soft tissue infection Postop Diagnosis: Necrotizing fasciitis Surgeon: Arben Lynne MD Anesthesiologist: Dr. Anders Anesthesia: Mac Consent: The patient was informed of the risks and benefits of the procedure. These include but are not limited to complications of anesthesia, postoperative infection, incomplete relief of symptoms, recurrence of symptoms, damage to blood vessels, nerves and tendons, deep venous thrombosis, pulmonary embolism and possible need for repeat surgery in the future. Estimated Blood Loss: 50 mL Findings: Necrotizing fasciitis that extended to the left rectum, pelvic floor, medial thigh muscles Indications for Surgery: Necrotizing infection Name of Procedure Performed Sharp excisional debridement of left groin, left medial thigh, left buttock, left ischiorectal fossa Procedure Details Procedure Details: Upon arrival to the operating room patient was transferred to the operating table. General endotracheal anesthesia was induced, time-out was observed, patient was then placed in the lithotomy position. Patient was prepped and draped in the standard sterile surgical fashion with Betadine-Betadine. I then directed my attention to the left groin open wound with necrotic tissue. Wound was approximally 7 cm in length with necrotic tissue at the center, he also had another small wound in the perineal area with necrotic tissue. I then connected the perineal wound to the left groin wound. Cultures taken. All necrotic tissue was sharply excised. Wound had to be extended into the left buttock area, as there was some more necrotic tissue in that area. I sharply excised all necrotic skin/subcutaneous fat/fascia from the wound. Final Wound is approximately 13 x 10 cm and extends from the lateral left scrotum (Dartos intact), to the sphincter muscle complex in the anus/rectum on the left, to the pelvic floor muscle, to the ischium bone on the left, to the medial aspect of the left gluteus clari and to the the medial thigh musculature. I removed all subcutaneous fat and fascia from the left ischiorectal fossa, the fascia overlying the sphincter muscle complex, the fascia of part of the pelvic floor muscle, the medial fascia of the gluteus clari. Wound was then copiously irrigated. Hemostasis achieved with the cautery device. No further necrotic tissue seen. At this point procedure was concluded. All counts complete and correct. Wound was packed with Dakin's 0.5% soaked Kerlix gauze x2, dressed with 4 x 4 gauze/ABD pad/tape. Patient was maxed on Levophed at the end of the procedure. Patient was transferred to PACU in critically stable condition, awaiting ICU bed. Specimen: Cultures taken Condition Critical Disposition Still a Patient ARBEN GUTHRIE MD Apr 18, 2025 16:07
[2025-04-18 16:13] LABS: Hematocrit 23.2 % (41.0-53.0)
[2025-04-18 16:15] LABS: Hemoglobin 7.0 g/dL (13.5-17.5)
[2025-04-18] MEDS: diphenhdrAMINE HCL 50 MG/1 ML VL ONE (18:45)
[2025-04-18] MEDS: diphenhdrAMINE HCL 50 MG/1 ML VL IM ONE (18:45)
--- NOTE | 2025-04-18 19:57 | DVHNC2 ---
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) Indication: Hypotension Room prepared for procedure: Yes Maximal sterile barrier precau: Mask/Eye shield, Sterile gown, Cap, Sterlie gloves, Large sterlie drape Skin Preparation: Chlorhexidine gluconate Skin preparation completely dr: Yes Insertion site: Left, Internal jugular Central line catheter type: [id number] dialysis Number of lumens: 3 Central line exchanged over a: Yes Antiseptic ointment applied to: Yes Post Assessment: Chest X-Ray, No Pneumothorax Informed consent obtained: Yes Risks/benefits/alt described: Yes Date of Service: Apr 19, 2025 Billing Provider: MIKE DE LA ROSA MD Common Visit Codes: PROCEDURE ONLY Procedure Codes: [id number] NON-TUNNEL CV CATH HALEY DELANEY RESIDENT Apr 18, 2025 19:57 MIKE DE LA ROSA MD Apr 19, 2025 15:33
--- NOTE | 2025-04-18 20:05 | DVH ---
CHEST RADIOGRAPH Indication: S/P CENTRAL LINE PLACEMENT Technique: 1 view Comparison: XY CHEST XRAY 1 VIEW on DOS: 04/17/25 FINDINGS: Lines and Tubes: Left IJ catheter terminates over the mid SVC. Lungs/Pleura: No focal consolidation or evident pleural abnormality. Mild perihilar interstitial opa cities are unchanged. Cardiomediastinum: Unremarkable. Other: No acute osseous abnormality. IMPRESSION: 1. No acute cardiopulmonary abnormality or significant change from prior exam. 2. Adequately positioned left IJ catheter.
[2025-04-18] MEDS ORDERED: ENOXAPARIN SOD 40 MG/0.4 ML SYRINGE SC ONE (21:00)
[2025-04-18 21:09] LABS: Hematocrit 24.8 % (41.0-53.0); Hemoglobin 7.4 g/dL (13.5-17.5)
[2025-04-18] MEDS ORDERED: ONDANSETRON HCL 4 MG/2 ML VIAL IV PRN (21:15)
[2025-04-18] MEDS: SODIUM CHLORIDE 0.9% 1,000 ML IV SCH (21:57)
[2025-04-18] MEDS: VANCOMYCIN 1.25GM/250ML 250 ML IV ONE (22:00)
[2025-04-18] MEDS: HYDROCORTISONE SOD SUCC 100 MG/2ML INJ VIAL IV SCH (22:00)
[2025-04-18] MEDS: ACETAMINOPHEN 500 MG TAB or CAP PO PRN (22:08)
[2025-04-19] VITALS (80 sets, daily range): BP systolic 34–155; BP diastolic 12–90; PULSE 57–137; RESP 6–43; TEMP 97.2–98.8; O2SAT 0–100
[2025-04-19 02:38] LABS: Hematocrit 21.7 % (41.0-53.0)
[2025-04-19 02:40] LABS: Mean Corpuscular Hemoglobin 24.0 pg (28.0-32.0); Mean Corpuscular Volume 75.7 fL (80.0-100.0); Nucleated Red Blood Cells % 0.1 %
[2025-04-19 02:45] LABS: Hemoglobin 6.9 g/dL (13.5-17.5)
[2025-04-19] MEDS: MORPHINE SULFATE INJ 2 MG/ml SYRG IV PRN (04:41)
[2025-04-19 05:41] LABS: Hematocrit 21.4 % (41.0-53.0); Mean Corpuscular Hemoglobin 24.3 pg (28.0-32.0); Mean Corpuscular Volume 75.7 fL (80.0-100.0)
[2025-04-19 05:42] LABS: Hemoglobin 6.9 g/dL (13.5-17.5)
[2025-04-19 05:46] LABS: Anion Gap 20 (5-15); BUN/Creatinine Ratio 33.2 (10.0-20.0); Bilirubin, Total 1.0 mg/dL (0.2-1.0); Magnesium 2.5 mg/dL (1.6-2.6); Potassium 4.3 mmol/L (3.5-5.1); Sodium 142 mmol/L (136-145)
[2025-04-19 05:56] LABS: Alanine Aminotransferase 51 U/L (7-40); Albumin 2.0 g/dL (3.2-4.8); Alkaline Phosphatase 162 U/L (46-116); Calcium 7.0 mg/dL (8.7-10.4); Carbon Dioxide 11 mmol/L (20-31); Chloride 111 mmol/L (98-107); Glucose 223 mg/dL (74-106); Total Protein 5.1 g/dL (5.7-8.2)
[2025-04-19 05:57] LABS: Blood Urea Nitrogen 83 mg/dL (9-23)
--- NOTE | 2025-04-19 06:08 | DVH ---
CHEST RADIOGRAPH Indication: Follow up Technique: Single frontal view of the chest was obtained Comparison: XY CHEST PORTABLE on DOS: 04/18/25 FINDINGS: Lines and Tubes: There is a left central venous catheter with its tip terminating in the superior stephanie a cava. Lungs: No focal consolidation. Pleura: No effusion. No pneumothorax. Cardiomediastinal contours: Cardiac silhouette is magnified. Bones: No acute osseous abnormality. IMPRESSION: 1. No acute cardiopulmonary disease.
[2025-04-19 07:04] LABS: Total Cells Counted 100.0 (100)
[2025-04-19] MEDS ORDERED: DEXTROSE (50%) 50ML SYRG IV PRN ×2 (08:30→17:45)
[2025-04-19 09:15] LABS: Base Excess -12.0 mmol/L (-2.0-3.0)
[2025-04-19] MEDS: PIPERACILLIN-TAZOB 3.375GM 100 ML IV SCH (09:16)
--- NOTE | 2025-04-19 10:44 | DVH ---
INDICATION: JUAN CARLOS VS CKD TECHNIQUE: Multiple real-time sonographic images of the kidneys and bladder were obtained. COMPARISON: None FINDINGS: The right kidney measures 12 cm in length, which is normal in size. There is normal echogen icity of the right kidney. 2 cm right renal mass. MRI renal mass protocol recommended. The left kidney measures 12 cm in length, which is normal in size. There is normal echogenicity of th e left kidney. No hydronephrosis. Gillis catheter is present in the bladder Trace bilateral pleural effusions IMPRESSION: 1.2 cm right renal mass. MRI renal mass protocol recommended.
[2025-04-19] MEDS ORDERED: fentaNYL CITRATE 100 MCG/2 ML VL ONE ×3 (10:48→15:42)
[2025-04-19 10:54] LABS: Base Excess -12.0 mmol/L (-2.0-3.0)
[2025-04-19] MEDS ORDERED: ACCU-CHEK COMFORT CURVE STRIP VI SCH (11:30)
[2025-04-19] MEDS ORDERED: InsuLIN REG 1unit/0.01ml Soln (100units/ml) SC SCH ×2 (11:30→22:00)
[2025-04-19] MEDS ORDERED: ESMOLOL HCL 10 ML IV ONE (12:28)
[2025-04-19] MEDS: ADENOSINE 6 MG/2 ML INJ IV ONE ×3 (14:46→20:09)
[2025-04-19] MEDS ORDERED: ETOMIDATE (2MG/ML) 20ML VIAL IV ONE (15:11)
[2025-04-19] MEDS ORDERED: MIDAZOLAM DRIP 50 mg/50mL 50 ML IV SCH (15:30)
[2025-04-19] MEDS ORDERED: fentaNYL Drip 2500mCg/250mlNS 250 ML IV SCH (15:30)
[2025-04-19] MEDS ORDERED: MIDAZOLAM HCL 2MG/2ML 2ml VIAL (1mg/ml) ONE (15:42)
[2025-04-19] MEDS ORDERED: AMIODARONE BOLUS KIT 100 ML IV ONE (16:00)
--- NOTE | 2025-04-19 16:06 | DVHINCON2 ---
Date Seen: Apr 19, 2025 Referring Physician MD Gail Reason for Consultation EKG changes History of Present Illness This is a 54-year-old male patient who presents to the emergency room with chief complaint of worsening perianal wound. Imaging done in the emergency room found extensive gas within the soft tissues of the left gluteal region, perineum, left adductor musculature, and left upper thigh suggestive of gas-forming bacterial infection. The patient was taken to the operating room for a excisional debridement of the left groin, buttock, and thigh. Postprocedure, cardiology was consulted "STAT" for an abnormal EKG rhythm. A twelve lead electrocardiogram obtained by PACU nurse revealed a narrow complex tachycardia. Adenosine 6mg IV was given one time, without change in rate or rhythm. A 2nd dose of adenosine (12mg) IV x 1 was administered while patient was connected to Zoll monitor, and the rhythm temporarily slowed down and revealed an atrial flutter rhythm. During this time, the patient was severely tachypneic, pale, clammy and hypotensive. The hospitalist came to bedside for intubation. Postprocedure, heart rate came down to 150's. A repeat twelve lead electrocardiogram was obtained and revealed atrial fibrillation with rapid ventricular response. Previous rhythms reviewed on cardiac monitoring earlier in the day prior to procedure and showed that patient was in sinus tachycardia. Significant past medical history includes type 2 diabetes mellitus and paraplegia. Unable to obtain more information given the at the time of asse ssment the patient is unable to answer any questions. History obtained from medical records and bedside RN. Past Medical History Past medical history reviewed. No other significant than mentioned above. Past Surgical History Unable to obtain Family History: Patient reports no known family medical history. Family History Family history reviewed. Social History Unable to obtain Allergies: Coded Allergies: NO KNOWN ALLERGIES (Unverified , 04/17/25) Home Meds Home medications reviewed. Current Medications Current Medications Medications (Trade) Dose Ordered Sig/Jackson Route PRN Reason Start Time Stop Time Status Last Admin Sodium Chloride 1,000 ml @ 100 mls/hr Q10H IV 04/18/25 16:45 04/19/25 15:28 DC 04/18/25 21:57 Hydrocortisone Sodium Succinate (Solu-CORTEF INJECTION) 50 mg Q8HR IV 04/18/25 20:00 04/19/25 06:13 Acetaminophen (Tylenol Tablet Or Capsule) 500 mg Q4HPRN PRN PO MILD PAIN (1-3 PAIN SCALE) 04/18/25 20:15 04/18/25 22:08 Morphine Sulfate 1 mg Q4HPRN PRN IV SEVERE PAIN (7-10 PAIN SCALE) 04/18/25 20:15 04/19/25 15:28 DC 04/19/25 04:41 Ondansetron HCl (Zofran) 4 mg Q4HPRN PRN IV NAUSEA / VOMITING 04/18/25 21:15 Piperacillin Sod/ Tazobactam Sod 100 ml @ 25 mls/hr Q8H IV 04/19/25 10:30 04/19/25 09:16 Diagnostic Test (Pha) (Accu-Chek Comfort Curve T) 1 strip ACHS 04/19/25 11:30 Insulin Human Regular (InsuLIN R) HS SC 04/19/25 22:00 Insulin Human Regular (InsuLIN R) AC SC 04/19/25 11:30 Dextrose 50 ml UD PRN IV Blood Sugar LESS THAN 60 04/19/25 08:30 Midazolam HCl 50 ml @ 1 mls/hr Q24H IV 04/19/25 15:30 Cancel Fentanyl Citrate 250 ml @ 2.5 mls/hr Q24H IV 04/19/25 15:30 Cancel Sodium Bicarbonate 150 ml/Dextrose 1,150 ml @ 100 mls/hr [id number] IV 04/19/25 15:30 Midazolam HCl 50 ml @ 1 mls/hr Q24H IV 04/19/25 15:30 Fentanyl Citrate 250 ml @ 2.5 mls/hr Q24H IV 04/19/25 15:30 Amiodarone HCL/ Dextrose 200 ml @ 16.66 mls/ hr Q12H IV 04/19/25 22:15 Review of Systems Constitutional: No symptom reported Ears, Nose, & Throat: No symptom reported Eyes: No symptom reported Neurological: No symptoms reported Pulmonary/Respiratory: No symptoms reported Cardiovascular: No symptom reported Gastrointestinal: No symptom reported Genitourinary: No symptom reported Musculoskeletal: No symptom reported Skin: Perianal wound Psychiatric: No symptom reported Endocrine: No symptom reported Hematologic/Lymphatic: No symptom reported Vital Signs Vital Signs Date Time Temp Pulse Resp B/P (MAP) Pulse Ox O2 Delivery O2 Flow Rate FiO2 04/19/25 15:54 98.0 132 21 155/90 90 100 98.0 04/19/25 10:00 Room Air* 0 Physical Exam General Appearance: Calm, relaxed. Pulmonary/Respiratory: Clear. Chemically intubated Cardiovascular/Chest: Irregularly irregular rate and rhythm. Peripheral Pulses: 2+ Radial (R). 2+ Radial (L). Abdominal Exam: Normal bowel sounds. Ankle Exam: Negative ankle edema Lower extremities: Negative lower extremity edema Neuro/Mental Status: Chemically sedated Thoughts/Psych: Deferred Appearance: No acute distress. Skin Exam: Pale, cool Labs/Diagnostic Data Labs Test 04/19/25 09:08 04/19/25 06:18 04/19/25 05:17 04/19/25 04:15 Range/Units Blood Gas Specimen Type Arterial Blood Gas Sample Site Left radial Blood Gas Patient Temperature 37.0 Arterial Blood Date Drawn [id number] Arterial Blood pH 7.395 7.350-7.450 Arterial Blood Partial Pressure CO2 19.4 *L 35.0-48.0 mmHg Arterial Blood Partial Pressure O2 84.8 83.0-108.0 mmHg Arterial Blood HCO3 11.6 L 21.0-28.0 mmol/L Arterial Blood Oxygen Saturation 95.5 94.0-98.0 % Arterial Blood Base Excess -12.0 L -2.0-3.0 mmol/L Arterial Blood Oxyhemoglobin 93.7 L 94.0-98.0 % Arterial Blood Carboxyhemoglobin 1.5 0.5-1.5 % Arterial Blood Methemoglobin 0.4 0.0-1.5 % Dutch Test Yes Blood Gas Total Hemoglobin 6.90 *L 13.5-17.5 g/dL Blood Gas Modality Room air FiO2 % 21.0 Blood Gas Critical Value Read Back yes Blood Gas Notified Whom Blood Gas Notified Time [id number] Blood Gas Notified By adri gonzales POC Glucose 236 H 70-106 mg/dl Phosphorus Level 4.4 2.4-5.1 mg/dL Creatine Kinase 1114 H 46-171 U/L Vitamin B12 Level 3246 H 211-911 pg/mL Vitamin D 25-Hydroxy 14.8 L 30.0-100 ng/mL Parathyroid Hormone (Intact) 180.6 H 18.4-80.1 pg/mL White Blood Count 26.0 H 4.4-10.8 10^3/uL Red Blood Count 2.83 L 4.5-5.90 10^6/uL Hemoglobin 6.9 *L 13.5-17.5 g/dL Hematocrit 21.4 L 41.0-53.0 % Mean Corpuscular Volume 75.7 L 80.0-100.0 fL Mean Corpuscular Hemoglobin 24.3 L 28.0-32.0 pg Mean Corpuscular Hemoglobin Concent 32.1 32.0-36.0 g/dL Red Cell Distribution Width 19.9 H 11.8-14.3 % Platelet Count 232 140-450 10^3/uL Mean Platelet Volume 8.1 6.9-10.8 fL Neutrophils (%) (Auto) 37.0-80.0 % Lymphocytes (%) (Auto) 10.0-50.0 % Monocytes (%) (Auto) 0.0-12.0 % Basophils (%) (Auto) 0.0-2.0 % Neutrophils # (Auto) 1.6-8.6 10 ^3/uL Lymphocytes # (Auto) 0.4-5.4 10 ^3/uL Monocytes # (Auto) 0-1.3 10 ^3/uL Differential Total Cells Counted 100.0 100 Neutrophils % (Manual) 85 H 37.0-80.0 Band Neutrophils % (Manual) 4 Lymphocytes % (Manual) 7 L 10.0-50.0 Monocytes % (Manual) 3 0-12 Eosinophils % (Manual) 0 0-7 Basophils % (Manual) 0 0.0-2.0 Metamyelocytes % (manual) 1 Myelocytes % (Manual) 0 Promyelocytes % (Manual) 0 Blast Cells % (Manual) 0 Reactive Lymphocytes 0 Platelet Estimate Adequate Sodium Level 142 136-145 mmol/L Potassium Level 4.3 3.5-5.1 mmol/L Chloride Level 111 H 98-107 mmol/L Carbon Dioxide Level 11 L 20-31 mmol/L Anion Gap 20 H 5-15 Blood Urea Nitrogen 83 #*H 9-23 mg/dL Creatinine 2.50 H 0.700-1.30 mg/dL Glomerular Filtration Rate Calc 30 >90 mL/min BUN/Creatinine Ratio 33.2 H 10.0-20.0 Serum Glucose 223 H 74-106 mg/dL Calcium Level 7.0 L 8.7-10.4 mg/dL Magnesium Level 2.5 1.6-2.6 mg/dL Total Bilirubin 1.0 0.2-1.0 mg/dL Aspartate Amino Transferase (AST) 89 H 13-40 U/L Alanine Aminotransferase (ALT) 51 H 7-40 U/L Alkaline Phosphatase 162 H 46-116 U/L Total Protein 5.1 L 5.7-8.2 g/dL Albumin 2.0 L 3.2-4.8 g/dL Random Vancomycin Level 18.4 H 5-10 ug/mL Test 04/19/25 02:02 04/18/25 13:32 04/18/25 05:17 04/18/25 02:24 Range/Units Eosinophils (%) (Auto) 0.9 0.0-7.0 % Eosinophils # (Auto) 0.2 0-0.8 10 ^3/uL Basophils # (Auto) 0 0-0.2 10 ^3/uL Nucleated Red Blood Cells 0.1 % Lactic Acid Level 5.8 *H 0.4-2.0 mmol/L Hypochromasia (manual) Moderate Microcytosis Moderate Ovalocytes Few Broughton Cells Few Reticulocyte Count (auto) 1.29 0.5-1.5 % Hemoglobin A1c 9.9 H <5.7 % A1C Iron Level 12 L 65-175 ug/dL Total Iron Binding Capacity 203 L 250-425 ug/dL Percent Iron Saturation 5.9 L 20-55 % Ferritin 102.0 22-322 ng/mL Lactate Dehydrogenase 141 120-246 U/L Thyroid Stimulating Hormone (TSH) 2.19 0.55-4.78 uIU/mL Troponin I High Sensitivity 33 </=54 ng/L Test 04/17/25 13:00 Range/Units Prothrombin Time 12.6 H 9.3-11.8 sec Prothrombin Time INR 1.21 H 0.9-1.15 B-Type Natriuretic Peptide 1174.26 0-100 pg/mL Microbiology Date/Time Source Procedure Growth Status 04/18/25 20:14 Nose MRSA Screen - Final Complete 04/17/25 13:00 Blood Blood Culture - Preliminary Resulted Assessment Atrial fibrillation with rapid ventricular response, new onset Atrial flutter, new onset Rule out structural heart disease Necrotizing fasciitis Septic shock Severe anemia requiring multiple PRBC infusions Acute kidney injury Type 2 diabetes mellitus Paraplegia Bed ridden Plan/Recommendation We will continue with the following plan/recommendations (): * Transthoracic echocardiogram to evaluate cardiac function * Vasopressors for hemodynamic support * ?[id number] VASc score: 1 point * Hold anticoagulation given severe anemia, SCD's in the meantime * Unable to initiate rate control given vasopressor therapy * Amiodarone bolus and protocol for rhythm control * Monitor hemoglobin and hematocrit, transfuse as needed * Monitor and replete electrolytes as needed * Close Cardiac surveillance * Antibiotics per primary care team Case discussed with . Consider goals of care with the patient's family given patient's likely poor prognosis. Thank you for allowing us to care for this patient. Please call with any questions or concerns. Critical care time spent: 44 minutes This medical document was created using an electronic medical record system with voice recognition software and computerized dictation system. Although this document has been carefully reviewed, there might still be some phonetic and typographical errors. Occasional wrong-word or ``sound-alike substitutions may have occurred due to the inherent limitations of voice recognition software. These areas are purely typographical due to imperfections of the software programs and do not reflect any compromise in the patient's medical care. Please read the chart carefully and recognize, using context, where these substitutions have occurred. Plan discussed with: Other (bedside RN) NYHA Physical activity limitations: NA Date of Service: Apr 19, 2025 Billing Provider: JORDAN THORNTON Cardiology Common Codes: [id number] INP/OBS CARE (High) Cardiology Consultation Codes: [id number] CONSULT <45MIN JORDAN THORNTON Apr 19, 2025 16:06
[2025-04-19] MEDS ORDERED: AMIODARONE 360mg/200mL PREMIX 200 ML IV ONE (16:15)
--- NOTE | 2025-04-19 16:39 | DVHPN2 ---
Progress Note - Surgical Date Seen: Apr 19, 2025 Post op day Post op day: 1 Subjective Patient reports: Feels worse (Complaining of pain to the area, still hypotensive and tachycardic) Review of Systems: Deferred Objective Vital signs Vital Sign Date Time Temp Pulse Resp B/P (MAP) Pulse Ox O2 Delivery O2 Flow Rate FiO2 04/19/25 15:54 98.0 132 21 155/90 90 100 98.0 04/19/25 11:00 Room Air* 0 Total Intake and Output 04/18/25 04/18/25 04/19/25 15:00 23:00 07:00 Intake Total 15.0 ml 332.50 ml 1130.00 ml Output Total 325 ml Balance 15.0 ml 332.50 ml 805.00 ml Medications Current Medications Medications Dose Ordered Sig/Jackson Route Start Time Stop Time Status Last Admin Dose Admin Vancomycin HCl 0 ml @ 0 mls/hr UD IV 04/17/25 12:15 Norepinephrine Bitartrate 250 ml @ 3.75 mls/hr Q24H IV 04/18/25 06:30 04/19/25 05:32 37.5 MLS/HR Pantoprazole Sodium 40 mg DAILY IV 04/18/25 10:00 04/19/25 09:16 40 MG Vancomycin HCl 0 ml @ 0 mls/hr UD IV 04/18/25 11:00 UNV Clindamycin Phosphate 50 ml @ 50 mls/hr Q8HR IV 04/18/25 14:00 04/19/25 06:13 50 MLS/HR Vasopressin 20 units/Sodium Chloride 100 ml @ 9 mls/hr Q11H7M IV 04/18/25 14:15 04/18/25 14:48 9 MLS/HR Hydrocortisone Sodium Succinate 50 mg Q8HR IV 04/18/25 20:00 04/19/25 06:13 50 MG Acetaminophen 500 mg Q4HPRN PRN PO 04/18/25 20:15 04/18/25 22:08 500 MG Ondansetron HCl 4 mg Q4HPRN PRN IV 04/18/25 21:15 Piperacillin Sod/ Tazobactam Sod 100 ml @ 25 mls/hr Q8H IV 04/19/25 10:30 04/19/25 09:16 25 MLS/HR Diagnostic Test (Pha) 1 strip ACHS 04/19/25 11:30 Insulin Human Regular HS SC 04/19/25 22:00 Insulin Human Regular AC SC 04/19/25 11:30 Dextrose 50 ml UD PRN IV 04/19/25 08:30 Midazolam HCl 50 ml @ 1 mls/hr Q24H IV 04/19/25 15:30 Cancel Fentanyl Citrate 250 ml @ 2.5 mls/hr Q24H IV 04/19/25 15:30 Cancel Sodium Bicarbonate 150 ml/Dextrose 1,150 ml @ 100 mls/hr [id number] IV 04/19/25 15:30 Midazolam HCl 50 ml @ 1 mls/hr Q24H IV 04/19/25 15:30 Fentanyl Citrate 250 ml @ 2.5 mls/hr Q24H IV 04/19/25 15:30 Amiodarone HCL/ Dextrose 200 ml @ 16.66 mls/ hr Q12H IV 04/19/25 22:15 Laboratory Laboratory Tests 04/19/25 04:15 Test 04/19/25 04:15 Range/Units Serum Glucose 223 H 74-106 mg/dL Microbiology Date/Time Source Procedure Growth Status 04/18/25 20:14 Nose MRSA Screen - Final Complete 04/17/25 13:00 Blood Blood Culture - Preliminary Resulted Examination: GENERAL:Normal, SKIN:Abnormal (Large wound that extends from the left groin area into the left buttock and medial thigh, necrosis at the base of the gluteal area with associated foul smell) Labs and/or images reviewed: Labs reviewed by me (Leukocytosis still at 26, unchanged from last) Problem List/Assessment/Plan Assessment and Plan Mr. Anthony is a 54-year-old male who presented with an infected wound in the left groin area, he was taken to the operating room yesterday and is currently postop day 1, due to necrotizing fasciitis of the pelvic floor and all organs. During my evaluation today so saw more necrotic tissue in the left gluteal area patient would need further debridement. Spouse was at bedside, procedure, risks, benefits, complications, and alternatives were discussed with her and the patient. We will proceed with further debridement. I also again went over the 100% mortality if this goes untreated with very elevated mortality even with treatment which can range from 60-80%. 1. On-call to the OR for further debridement 2. Continue with vanc, Zosyn, clinda 3. Dressing changes as ordered My Orders My Orders Orders - ABBIE GUTHRIE MD Procedure Category Date Status Time Lactic Acid W/ Reflex LAB 04/19/25 Logged Order 08:31 Obtain Consent For: ORDERS 04/19/25 Transmitted 10:42 Obtain Consent For CONSUELO 04/19/25 In Process Anesthesia 10:42 Routine Bacterial [place] 04/19/25 In Process Culture 11:34 Anaerobic Culture [place] 04/19/25 In Process 11:34 Gram Stain [place] 04/19/25 In Process 11:34 Fungus Culture With [place] 04/19/25 Logged Stain 11:34 Plan discussed with Plan discussed with: Patient, Spouse Visit Coding Surgery Date of Service if different f: Apr 19, 2025 Billing Provider: ABBIE GUTHRIE MD Surgery Visit Codes: [id number] INP/OBS CARE(HIGH) ABBIE GUTHRIE MD Apr 19, 2025 16:39
--- NOTE | 2025-04-19 16:44 | DVH ---
CHEST RADIOGRAPH Indication: POST INTUBATION Technique: Single frontal view of the chest was obtained Comparison: XY CHEST XRAY 1 VIEW on DOS: 04/19/25, XY CHEST PORTABLE on DOS: 04/18/25, XY CHEST XRAY 1 VIEW on DOS: 04/17/25 FINDINGS: The nasogastric tube projects towards the stomach The cardiac silhouette is borderline enlarged. The lungs demonstrate perihilar airspace opacities. Th e pulmonary vasculature is prominent. There is no pleural effusion. There is no pneumothorax. IMPRESSION: Borderline cardiomegaly with pulmonary vascular congestion and bilateral perihilar airspace opacities .
--- NOTE | 2025-04-19 17:02 | DVHOP2 ---
Operative Report - 2 Report Details Date: 04/19/25 Preop Diagnosis: Necrotizing fasciitis of the pelvic floor, pelvic organs, and gluteus muscle Postop Diagnosis: Necrotizing fasciitis extending into the thigh muscles, upper segment of femur/ileum, coccyx, pelvic floor Surgeon: Arben Lynne MD Anesthesiologist: Dr. Reynolds Anesthesia: Mac Consent: The patient was informed of the risks and benefits of the procedure. These include but are not limited to complications of anesthesia, postoperative infection, incomplete relief of symptoms, recurrence of symptoms, damage to blood vessels, nerves and tendons, deep venous thrombosis, pulmonary embolism and possible need for repeat surgery in the future. Estimated Blood Loss: 200 mL Findings: Necrotizing fasciitis involving more of the gluteal muscle fascia and subcutaneous tissue, extending more me immediately into the anterior rectal fat, extending into the left thigh muscles Indications for Surgery: Actively spreading infection Name of Procedure Performed Sharp excisional debridement of all tissue, muscle, fascia Procedure Details Procedure Details: Upon arrival to the operating room patient was transferred to the operating table. And placed in the right lateral decubitus position. Monitored anesthesia care was established. Time-out was observed. Previous dressing was removed. Patient was prepped and draped in the standard sterile surgical fashion with Betadine-Betadine. I then directed my attention to the left gluteal area that was exposed through the previous wound, patient had necrotic tissue all throughout. Tissue was sharply excised until healthy bleeding tissue. I then did further sharp excisional debridement on the left perirectal area, and extended it onto the anterior rectal area. I also sharply excised more fascia from the pelvic floor musculature outer surface. I then noted some purulent fluid and crepitus from the posterior thigh area. I then extended the incision to the posterior thigh area up to approximately half the thigh. I then sharply excised all the fascia, muscle, subcu tissue from all that area. Biceps femoris and vastus lateralis muscle were completely bare without fascia after the excisional debridement. Also had to excise part of the gluteus clari muscle as it was . Patient kept decompensating during the procedure, he was on maximum Levophed and vasopressin was added. Patient kept going in and out of AFib. At this point I decided to terminate the procedure due to patient instability. Hemostasis was achieved with electrocautery. Wound was copiously irrigated with Betadine saline wash. Wound was then packed with 5 rolls of Kerlix soaked in Dakin's 0.25% solution. Dressed with 4 x 4 gauze ABD pads and tape. All counts complete and correct at the end of the procedure. Patient did not tolerate the procedure well and was transferred to PACU in critical condition. Wound measurement at the end was 24 cm in length by 20 cm wide. Specimen: Cultures taken Condition Critical Disposition Still a Patient ARBEN GUTHRIE MD Apr 19, 2025 17:02
[2025-04-19 17:05] LABS: Hematocrit 24.9 % (41.0-53.0); Hemoglobin 7.4 g/dL (13.5-17.5)
--- NOTE | 2025-04-19 17:30 | DVHPNRES ---
Progress Note Date Seen: Apr 19, 2025 Resident Creating Document: HALEY DELANEY RESIDENT Medical Necessity Reason Pt with a Central, PICC or Fol: Yes The following are medically ne: Central Line, Carpio Catheter Reason for carpio catheter: Strict I&O, St 4 Pressure ulcer Subjective Review of Systems This is a 54-year-old male patient with type 2 diabetes mellitus, hypertension, history of intubation and cardiac arrest 20 years back, bed-bound/wheelchair-bound, multiple decubitus ulcers, urinary and bowel incontinence, not on any medications who was brought to the ER by family for the evaluation of left groin draining wound and scrotal swelling for the past 4 weeks, patient reports that it started as swelling of scrotum which increased in size, later popped open and started to drain purulent material with foul smelling. He denies fever but reports chills, generalized weakness low appetite. Denies shortness of breaths or abdominal pain. On arrival to the ER, patient was septic, CT abdomen showing possible necrotizing fasciitis versus necrotizing superficial infection, patient was started on IV antibiotics and received IV fluids, surgical consultation was placed and patient is undergoing debridement versus fasciotomy 04/18. Past medical/surgical history: type 2 diabetes mellitus, hypertension, history of intubation and cardiac arrest 20 years back, bed-bound/wheelchair-bound, multiple decubitus ulcers, urinary and bowel incontinence, not on any medications Home medications: Denies Social history: Lives with , son, denies smoking/drinking/drug use PCP: Dr. Lmab 04/18-Patient seen and examined in the preop area. Requiring Levophed at 4 mcg. IV Zosyn/clindamycin/vanc. Patient underwent Sharp excisional debridement of left groin, left medial thigh, left buttock, left ischiorectal fossa 04/19-patient seen and examined, alert in the morning, hours pain to the postoperative area, on Levophed, more necrotic tissue seen examination along with Dr. Rolon, underwent re-debridement, following which patient was requiring 3 pressors, received adenosine for SVT, underlying rhythm AFib, cardiology consulted-started IV Amiodarone, intubated postop, underwent cardiac arrest and CPR post intubation, ABG showing severe metabolic acidosis, patient started on bicarb D5W drip. Pushes of bicarb given during code. Objective vital signs Vital Sign Date Time Temp Pulse Resp B/P (MAP) Pulse Ox O2 Delivery O2 Flow Rate FiO2 04/19/25 15:54 98.0 132 21 155/90 90 100 98.0 04/19/25 11:00 Room Air* 0 Total Intake and Output 04/18/25 04/18/25 04/19/25 15:00 23:00 07:00 Intake Total 15.0 ml 332.50 ml 1130.00 ml Output Total 325 ml Balance 15.0 ml 332.50 ml 805.00 ml medications Current Medications Medications Dose Ordered Sig/Jackson Route Start Time Stop Time Status Last Admin Dose Admin Vancomycin HCl 0 ml @ 0 mls/hr UD IV 04/17/25 12:15 Norepinephrine Bitartrate 250 ml @ 3.75 mls/hr Q24H IV 04/18/25 06:30 04/19/25 05:32 37.5 MLS/HR Pantoprazole Sodium 40 mg DAILY IV 04/18/25 10:00 04/19/25 09:16 40 MG Vancomycin HCl 0 ml @ 0 mls/hr UD IV 04/18/25 11:00 UNV Clindamycin Phosphate 50 ml @ 50 mls/hr Q8HR IV 04/18/25 14:00 04/19/25 06:13 50 MLS/HR Vasopressin 20 units/Sodium Chloride 100 ml @ 9 mls/hr Q11H7M IV 04/18/25 14:15 04/18/25 14:48 9 MLS/HR Hydrocortisone Sodium Succinate 50 mg Q8HR IV 04/18/25 20:00 04/19/25 06:13 50 MG Acetaminophen 500 mg Q4HPRN PRN PO 04/18/25 20:15 04/18/25 22:08 500 MG Ondansetron HCl 4 mg Q4HPRN PRN IV 04/18/25 21:15 Piperacillin Sod/ Tazobactam Sod 100 ml @ 25 mls/hr Q8H IV 04/19/25 10:30 04/19/25 09:16 25 MLS/HR Diagnostic Test (Pha) 1 strip ACHS 04/19/25 11:30 Insulin Human Regular HS SC 04/19/25 22:00 Insulin Human Regular AC SC 04/19/25 11:30 Dextrose 50 ml UD PRN IV 04/19/25 08:30 Midazolam HCl 50 ml @ 1 mls/hr Q24H IV 04/19/25 15:30 Cancel Fentanyl Citrate 250 ml @ 2.5 mls/hr Q24H IV 04/19/25 15:30 Cancel Sodium Bicarbonate 150 ml/Dextrose 1,150 ml @ 100 mls/hr [id number] IV 04/19/25 15:30 Midazolam HCl 50 ml @ 1 mls/hr Q24H IV 04/19/25 15:30 Fentanyl Citrate 250 ml @ 2.5 mls/hr Q24H IV 04/19/25 15:30 Amiodarone HCL/ Dextrose 200 ml @ 16.66 mls/ hr Q12H IV 04/19/25 22:15 Examination Patient lying in bed, intubated and mechanically ventilated General: Afebrile, palor, mucosae are moist Cardiovascular: Tachycardic and irregular S1 and S2. No murmurs, gallops or rubs. No JVD elevation. 1+ pitting pedal edema bilaterally Respiratory: Decreased bilateral breath sounds Abdomen: nondistended, hypoactive bowel sounds, no rebound tenderness, no organomegaly, no masses, open wound post debridementx2, covered with dressing, dry clean and intact Genitourinary: Has a Carpio catheter, initial exam: scrotum is swollen and erythematous, medial to the scrotum on the left side - draining wound with grayish exudative discharge, foul smelling, similar draining wounds on the coccyx area. MSK/skin: Skin is dry and warm Neurological: Pupils are mid dilated laboratory and microbiology Laboratory Tests 04/19/25 16:53 04/19/25 04:15 Test 04/19/25 04:15 Range/Units Serum Glucose 223 H 74-106 mg/dL Microbiology Date/Time Source Procedure Growth Status 04/18/25 20:14 Nose MRSA Screen - Final Complete 04/17/25 13:00 Blood Blood Culture - Preliminary Resulted Labs and/or images reviewed: Labs reviewed by me, Image(s) reviewed by me Problem List/Assessment/Plan Problem List/Assessment/Plan NEURO: Bed-bound/wheelchair-bound Urinary and bowel incontinence History of multiple herniation ? Anoxic brain injury Monitor Q.2h turns Aspiration and head of bed elevation precautions CARDIOVASCULAR: Cardiac arrest 04/19 CPR AFib with RVR - CHADS2 Vasc score 3-new onset Probable congestive heart failure Worsening anion gap metabolic acidosis Septic Shock secondary to necrotizing fasciitis/necrotizing superficial infection s/p excisional debridement Volume overload History of hypertension Lactic acidosis Requiring Levophed, vasopressin Stress dose steroids started 04/18 hydrocortisone Q 50 mg IV NS 100 cc an hour BNP 1000 Echo pending Cardiology consulted-IV amiodarone started D5W at 100 cc/hour with 3 amps of bicarb continuous started 04/19 PULMONARY: Pulmonary edema history of intubation and cardiac arrest 20 years back Probable aspiration pneumonia CT scan shows Bilateral lung base interstitial prominence and bilateral pleural effusion suggestive of CHF. GASTROINTESTINAL: Low volume ascites Monitor GENITOURINARY: JUAN CARLOS secondary to hemodynamically mediated/VMN Likely left renal mass questionable unspecified ? Chronic kidney disease Likely Acute complicated cystitis Anion gap metabolic acidosis secondary to uremia CT scan abdomen shows emphysematous cystitis, UA pending Follow up with a UA, urine electrolytes Carpio placed MRI abdomen could not be completed as patient is stable HEMATOLOGY: Anemia likely iron-deficiency anemia/chronic kidney disease Requiring blood transfusion 3 packed RBC transfusion METABOLIC: Severe protein calorie malnutrition, albumin Uncontrolled Diabetes mellitus type 2-A1c 9.9 Mild ISS SPINAL: Multiple herniated disc CT scan abdomen shows Advanced lumbar degenerative disc disease and facet arthropathy; severe right and moderate to severe left hip osteoarthritis. INFECTIOUS DISEASE: Septic shock due to necrotizing fasciitis/superficial infection status post sharp excisional debridement of all the tissue/muscle/fascia 04/18 and 04/19 Probable aspiration pneumonia Bacteremia Decubitus ulcer - present on admission Prelim blood culture showing Gram-positive cocci in pairs and chains Extensive gas within the soft tissues of the left gluteal region, perineum, left adductor musculature, and left upper thigh with pelvic and upper thigh subcutaneous edema, greater on the left. This appearance is suggestive of gas forming bacterial infection. Recommend surgical consultation if not already obtained. IV Zosyn, IV vancomycin, IV clindamycin starting 04/18 NPO DIET: NPO DVT prophylax: SCDs given anemia GI prophylaxis: Protonix twice daily Bowel regimen: On hold Code status: Full code LINES/DRAINS/ACCESS: IV access: Left IJ CVC 04/18 Drips: Versed, fentanyl, Levophed, vasopressin Carpio catheter: 04/17 DISPOSITION: ICU Patient's status discussed with patient's , and son in which all questions have been answered Goals of care discussed with patient's /son for over 18 minutes, full code status Critical care time spent more than 82 minutes, including patient care, chart review, and updating the , son regarding the prognosis. Excluding any procedures Case discussed with Dr. De La Rosa Plan discussed with: Spouse, Daughter, Son My Orders My Orders Orders - HALEY DELANEY RESIDENT Procedure Category Date Status Time Chest Portable XY 04/18/25 Resulted 18:52 Hydrocortisone PHA 04/18/25 In Process Succinate Inj 20:00 Chest Xray 1 View XY 04/19/25 Resulted 04:00 Abg W/ Co-Ox RT 04/19/25 Logged 04:00 Communication Order ORDERS 04/18/25 Transmitted 19:58 Acetaminophen Tab Or PHA 04/18/25 In Process Cap (Tylenol Tablet 20:15 * Wound Consult CONS 04/19/25 Transmitted 02:04 * Dietary Consult CONS 04/19/25 Transmitted 02:04 Piperacillin-Tazob PHA 04/19/25 In Process 3.375gm (Zosyn 3.375g 10:30 Glucose Blood PHA 04/19/25 In Process (Accu-Chek Comfort 11:30 Insulin R (Human) PHA 04/19/25 In Process (Insulin R) 22:00 Insulin R (Human) PHA 04/19/25 In Process (Insulin R) 11:30 Dextrose 50% Syringe PHA 04/19/25 In Process 08:30 *Dr. David Mendez CONS 04/19/25 Transmitted -[place] 08:18 Kidney US 04/19/25 Resulted 08:18 Abg W/ Co-Ox RT 04/19/25 Logged 08:45 Npo (Nothing By DIET 04/19/25 Transmitted Mouth) Diet Lunch Dietary Evaluation Review Comments: CCHO-60 Renal Diet with 60g protein restriction Reasses after nephrology consult Expected Outcomes/Goals: healed wounds, controlled DM and free from uremic syndrome Date of Service: Apr 19, 2025 Billing Provider: MIKE DE LA ROSA MD Common Visit Codes: 27835-[id number] CARE 30-74 MIN, [id number] CARE-EACH +30MIN HALEY DELANEY Apr 19, 2025 17:30 MIKE DE LA ROSA MD Apr 22, 2025 12:25
[2025-04-19 17:59] LABS: Lactic Acid w/Reflex 9.6 mmol/L (0.4-2.0)
[2025-04-19] MEDS: NOREPINEPHRINE 8 MG/250ML KIT 250 ML IV ONE (18:00)
[2025-04-19] MEDS: DAKINS HALF STR 0.25% (NaHypochlorite) 473 ML TOPICAL SOL TOP ONE ×2 (18:00)
[2025-04-19] MEDS: VASOPRESSIN 20 UNIT/ML ONE ×2 (18:00)
[2025-04-19] MEDS: fentaNYL Drip 2500mCg/250mlNS 250 ML IV SCH (18:00)
[2025-04-19] MEDS: SODIUM BICARB 50mEq/50ml Vial 150 ML in D5W 5% 1,000 ML IV SCH (18:00)
[2025-04-19] MEDS: InsuLIN REG 1unit/0.01ml Soln (100units/ml) SC SCH (18:00)
[2025-04-19] MEDS: SUCCINYLCHOLINE CHLORIDE 20 MG/ML 10ML VIAL IV ONE (18:00)
[2025-04-19] MEDS: PHENYLEPHRINE IV 250 ML IV ONE ×3 (18:00→20:08)
[2025-04-19] MEDS: ROCURONIUM 10MG/ML 10ML VIAL IV ONE (18:00)
[2025-04-19] MEDS: MIDAZOLAM DRIP 50 mg/50mL 50 ML IV SCH (18:00)
[2025-04-19] MEDS ORDERED: PHENYLEPHRINE IV 250 ML IV SCH (18:30)
[2025-04-19] MEDS ORDERED: PHENYLEPHRINE INJ 80 MG in SODIUM CHL 0.9% 242 ML IV SCH (18:30)
[2025-04-19] MEDS: VANCOMYCIN 500mg/100mL 100 ML IV ONE (18:31)
[2025-04-19] MEDS: ACCU-CHEK COMFORT CURVE STRIP VI SCH (19:00)
[2025-04-19] MEDS: NOREPINEPHRINE BITARTRATE 32 MG in SODIUM CHL 0.9% 218 ML IV SCH (19:00)
--- NOTE | 2025-04-19 20:06 | DVH ---
CHEST RADIOGRAPH Indication: S/P INTUBATION AND NGT PLACEMENT Technique: 1 view Comparison: XY CHEST XRAY 1 VIEW on DOS: 04/19/25, XY CHEST XRAY 1 VIEW on DOS: 04/19/25, XY CHEST PORT ABLE on DOS: 04/18/25, XY CHEST XRAY 1 VIEW on DOS: 04/17/25 FINDINGS: Lines and Tubes: No visualized endotracheal tube. Unchanged enteric tube. Lungs/Pleura: Unchanged. Cardiomediastinum: Unchanged. Other: Unchanged osseous structures. IMPRESSION: 1. No significant change from approximately 5 hours prior. Stable enteric tube. No visualized endotr acheal tube.
[2025-04-19] MEDS: PHENYLEPHRINE INJ 80 MG in SODIUM CHL 0.9% 242 ML IV SCH (20:07)
[2025-04-19] MEDS: PHENYLEPHRINE HCL 10 MG/ML VL ONE (20:09)
[2025-04-19] MEDS: SODIUM CHLORIDE 0.9% 500 ML IV ONE (20:45)
[2025-04-19 21:17] LABS: Hematocrit 25.5 % (41.0-53.0); Hemoglobin 7.4 g/dL (13.5-17.5); Mean Corpuscular Hemoglobin 26.3 pg (28.0-32.0); Mean Corpuscular Volume 90.0 fL (80.0-100.0)
[2025-04-19] MEDS: SODIUM BICARB 8.4% 50Meq/50ml SYR Vial IV ONE ×3 (21:24→23:32)
[2025-04-19] MEDS: EPINEPHrine HCL 250 ML IV ONE ×2 (21:24→22:02)
[2025-04-19] MEDS: EPINEPHrine HCL 250 ML IV SCH (21:30)
[2025-04-19 21:31] LABS: Anion Gap 20.00001 (5-15)
[2025-04-19 21:36] LABS: BUN/Creatinine Ratio 23.8 (10.0-20.0)
[2025-04-19 21:42] LABS: Blood Urea Nitrogen 71 mg/dL (9-23); Chloride 118 mmol/L (98-107); Glucose 220 mg/dL (74-106); Magnesium 3.0 mg/dL (1.6-2.6); Sodium 148 mmol/L (136-145)
[2025-04-19 21:43] LABS: Calcium 6.6 mg/dL (8.7-10.4)
[2025-04-19 21:44] LABS: Carbon Dioxide < 10 mmol/L (20-31); Potassium 5.9 mmol/L (3.5-5.1)
[2025-04-19 22:15] LABS: Base Excess -24.9 mmol/L (-2.0-3.0)
[2025-04-19] MEDS: DOPamine 1600MCG/ML D5W 250 ML IV SCH (22:15)
[2025-04-19] MEDS ORDERED: AMIODARONE 360mg/200mL PREMIX 200 ML IV SCH (22:15)
--- NOTE | 2025-04-19 22:15 | RESUS ---
CODE BLUE ASSESSSMENT History of Events History of Events: SP Sharp excisional debridement of all tissue, muscle, fascia today, previously coded post op. at 2122 Patient became bradycardic and hypotensive despite pressors. Pulse was lost. CPR and code blue initiated. Initial Information Date: Apr 19, 2025 Time: 21:23 Location of Arrest: ICU ([place]) Arrest Witnessed: Yes CPR started initial time: 21:33 CPR started by whom: Hospital Staff Type of arrest: Cardiac, Respiratory, Adult, Witnessed Spontaneous Respirations: No Pulse Present: No Monitoring: ECG, Pulse Oximetry, Telemetry Crash Cart Opened and Supplies: Yes Airway Ventilation Breathing at Onset: Assisted O2 Sat by Pulse Oximetry: 97 Oxygen Delivery Method: Mechanical Ventilator Artificial Ventilation: Bag/Endo tube Intubation Size: 8.0 cuffed Intubated by: Previously intubated Intubated orally: Yes Tube secured at: 22 (cm @ lip) Suctioning (Oral/Tracheal): Yes Comments: previously intubated Circulation Circulation #1: Time: 21:23 Pulse Rate (adult): 0 Blood Pressure Systolic: 0 Blood Pressure Diastolic: 0 Temperature (Fahrenheit): 98.0 Circulation Comment: CPR Initiated Circulation #2: Time: 21:25 Pulse Rate (adult): 0 Circulation Comment: Asystole Circulation #3: Time: 21:27 Pulse Rate (adult): 130 (PEA) Circulation Comment: PEA Circulation #4: Time: 21:29 Pulse Rate (adult): 134 Circulation Comment: PEA Circulation #5: Time: 21:31 Pulse Rate (adult): 175 Circulation Comment: VFIB - shock Circulation #6: Time: 21:33 Circulation Comment: ROSC Defibrillation Defbrillation : Time Defibrillator Applied: 21:31 EKG Rhythm: V-Fibrillation Compressions: Manual Defib. Joules: 120 Pulse Present: Yes (at 2132) EKG Rhythm: Atrial Fibrillation Procedure - IV Procedure - IV : IV Side: Left IV Location: Internal Jugular IV Placed: In Hospital IV Line Care: Saline Flush Comment placed previously code Medications & Response Medications and Responses #1: Medication Time: 21:23 ADULT Medications Given ADULT: Epinephrine 1 mg, Sodium Bacarbinate 50 meq Route of Administration: IV Heart Rate: 0 EKG Rhythm: Asystole Blood Pressure Systolic: 0 Blood Pressure Diastolic: 0 Medications and Responses #2: Medication Time: 21:26 ADULT Medications Given ADULT: Epinephrine 1 mg Route of Administration: IV Heart Rate: 0 EKG Rhythm: Asystole Blood Pressure Systolic: 0 Blood Pressure Diastolic: 0 Medications and Responses #3: Medication Time: 21:29 ADULT Medications Given ADULT: Epinephrine 1 mg Route of Administration: IV EKG Rhythm: PEA Blood Pressure Systolic: 0 Blood Pressure Diastolic: 0 EKG Rhythm: PEA (134) Medications and Responses #4: Medication Time: 21:32 ADULT Medications Given ADULT: Epinephrine 1 mg Route of Administration: IV EKG Rhythm: PEA Blood Pressure Systolic: 0 Blood Pressure Diastolic: 0 EKG Rhythm: PEA (134) Nurses Notes [place] Coma Scale Eye Opening: None (1) [place] Coma Scale Verbal: None (1) Simi Coma Scale Motor: None (1) Glascow Total: 3 Pupil Reaction: Non Reactive Bedside Blood Glucose: 159 EKG Rhythm: Atrial Fibrillation (122 ( ekg post rosc)) Nurses Notes - Comment: 1 amp bicarb given before code blue, 1 amp given post (total 4 amps). Family bedside after to discuss with Dr. Morrison POC Time Code Ended Time Code Ended: 21:33 Post Arrest Status: Ventilated Outcome of code: Successful Family notified: Yes Attending called: Yes Code Team Present: Bill Robison CUSHION BUILDER, Joshua RT, Tito RN, ICU charge, Brunilda RN primary, Evelia RN, Maggy RN, Karen RN. Post Resuscitation Neurologica Pupil Size: 6 Comment: Pupils Equal Round, Non Reactive to light, Dilated ROSC Time of ROSC: 21:33 Pt Meets Criteria for Therapeu: REKHA Muhammad Apr 19, 2025 22:15
[2025-04-19 22:22] LABS: Anisocytosis Slight; Total Cells Counted 100.0 (100)
[2025-04-19] MEDS: ALBUTEROL SULF 2.5 MG/0.5ML(0.5%) NEB SOLN NEB ONE (22:34)
--- NOTE | 2025-04-19 22:43 | DVH ---
CHEST RADIOGRAPH Indication: POST cpr Technique: Single frontal view of the chest was obtained Comparison: XY CHEST PORTABLE on DOS: 04/19/25, XY CHEST XRAY 1 VIEW on DOS: 04/19/25, XY CHEST XRAY 1 VIEW on DOS: 04/19/25 FINDINGS: Lines and Tubes: Left internal jugular catheter in place in the superior vena cava. Enteric tube in t he stomach below the left diaphragm. Endotracheal tube in place at the level of the T1 Lungs: No focal consolidation. Pleura: No effusion. No pneumothorax. Cardiomediastinal contours: Unremarkable Bones: No acute osseous abnormality. IMPRESSION: 1. No acute cardiopulmonary disease. 2. Endotracheal tube in place of the level of T1 3. Enteric tube below the left diaphragm in the stomach 4. Central line left internal jugular vein in superior vena cava above the right atrium 5. AED pad over the right chest
[2025-04-19 23:25] LABS: Hematocrit 19.4 % (41.0-53.0); Mean Corpuscular Hemoglobin 25.7 pg (28.0-32.0); Mean Corpuscular Volume 87.0 fL (80.0-100.0)
[2025-04-19 23:29] LABS: Hemoglobin 5.7 g/dL (13.5-17.5)
[2025-04-19 23:42] LABS: Anion Gap 25.00001 (5-15); BUN/Creatinine Ratio 24.0 (10.0-20.0)
[2025-04-19 23:43] LABS: Bilirubin, Total 0.7 mg/dL (0.2-1.0)
[2025-04-19 23:45] LABS: Sodium 150 mmol/L (136-145)
[2025-04-19 23:46] LABS: Alanine Aminotransferase 480 U/L (7-40); Albumin 1.3 g/dL (3.2-4.8); Alkaline Phosphatase 205 U/L (46-116); Blood Urea Nitrogen 67 mg/dL (9-23); Calcium 7.0 mg/dL (8.7-10.4); Chloride 115 mmol/L (98-107); Glucose 236 mg/dL (74-106); Magnesium 3.0 mg/dL (1.6-2.6); Total Protein 3.4 g/dL (5.7-8.2)
[2025-04-19 23:47] LABS: Carbon Dioxide < 10 mmol/L (20-31); Potassium 5.6 mmol/L (3.5-5.1)
[2025-04-19 23:52] LABS: INR 1.92 (0.9-1.15); Prothrombin Time 19.1 sec (9.3-11.8)
--- NOTE | 2025-04-19 23:55 | DVH ---
CHEST RADIOGRAPH Indication: ET TUBE POSITION CHANGE Technique: 1 view Comparison: XY CHEST XRAY 1 VIEW on DOS: 04/19/25, XY CHEST PORTABLE on DOS: 04/19/25, XY CHEST XRAY 1 VIEW on DOS: 04/19/25, XY CHEST XRAY 1 VIEW on DOS: 04/19/25, XY CHEST PORTABLE on DOS: 04/18/25 FINDINGS: See below. IMPRESSION: 1. Intervally advanced endotracheal tube now terminating 5.5 cm above the laith, adequately position ed. 2. No other significant interval change from 1.4 hours prior.
[2025-04-19] MEDS ORDERED: MORPHINE SULFATE INJ 2 MG/ml SYRG ONE (23:59)
[2025-04-19] MEDS ORDERED: LORazepam 2MG/ML-1ML VIAL ONE (23:59)
[2025-04-20] MEDS ORDERED: LORazepam 2MG/ML-1ML VIAL IV PRN
[2025-04-20] MEDS ORDERED: MORPHINE SULFATE INJ 2 MG/ml SYRG IV PRN
[2025-04-20 00:04] LABS: Partial Thromboplastin Time 128.8 SEC (24.5-34.5)
[2025-04-20 00:19] LABS: Base Excess -27.2 mmol/L (-2.0-3.0)
[2025-04-20 00:30] VITALS: RESP 0
[2025-04-20 00:31] LABS: Total Cells Counted 100.0 (100)
[2025-04-20 00:32] LABS: Anisocytosis Slight
[2025-04-20] MEDS ORDERED: ATROPINE SULF 1 MG/10ml SYR IM ONE (00:32)
--- NOTE | 2025-04-20 09:37 | DVHSR ---
APPROVED REPORT EXAM: Two-dimensional and M-mode echocardiogram with Doppler and color Doppler. Blood Pressure: 128/59 mmHg INDICATION Heart Failure RISK FACTORS Height: 6'1", Weight: 216 DIMENSIONS LVDd5.4 (3.8-5.7cm)LA (2D)4.2 (1.9-4.0cm)Aortic Root3.2 (2.0-3.7cm) LVDs4.1 (2.5-4.0cm)LA (MM) (1.9-4.0cm)Aortic Cusp Exc2.2 (1.5-2.0cm) EF (%) 49.0 (55-70%)Rt. Atrium (1.9-4.0cm)Asc. Aorta cm IVSd0.9 (0.7-1.1cm)RV (D) (1.8-2.4cm) PWd0.7 (0.7-1.1cm) Mitral Valve MitralMitral Stenosis E wave0.95m/sMV Mean GR.mmHg A wave0.81m/sMV Peak GR.mmHg E/A ratio1.22D MVAcm2 DECEL [id number] 1/2 Timems Aortic Valve Aortic ValveAortic Stenosis V11.24m/Elmo Mean GR.7mmHg V21.67m/Elmo Peak GR.11mmHg LVOT Diameter2.3 (1.8-2.4cm)Doppler AVA3.08cm2 Other Information Quality : Technically LimitedRhythm : Technically limited study due to patient position. Conclusion Technically good study. Sinus rhythm. Left atrial enlargement. Mild mitral annular calcification. Mild aortic sclerosis. Mild calcification of the sinuses of Vals tabares. Left ventricular systolic performance is is borderline at 50%. Normal RV function. Mild MR. No pericardial effusion masses or vegetations.
--- NOTE | 2025-04-20 10:27 | RESUS ---
CODE BLUE ASSESSSMENT History of Events History of Events: Per nurse, change in rhythym, bradycardia then PEA. Code blue called, CPR initiated. Patient was in recovery area post procedure. See "other reports" in EMR for further details. Initial Information Date: Apr 20, 2025 Time: 16:26 Location of Arrest: Recovery (Bed 3) Arrest Witnessed: Yes CPR started initial time: 16:26 CPR started by whom: Hospital Staff Type of arrest: Cardiac, Respiratory, Adult, Witnessed Spontaneous Respirations: No Pulse Present: No Monitoring: ECG, Pulse Oximetry, Telemetry Crash Cart Opened and Supplies: Yes Airway Ventilation Breathing at Onset: Assisted Oxygen Delivery Method: Ambu-Bag Artificial Ventilation: Bag/Endo tube Intubation Size: 8.0 cuffed Intubated orally: Yes Intubated Nasaly: No Tube secured at: 22 Comments: Patient intubated prior to code blue. See nursing notes in EMR. Circulation Circulation #1: Time: 16:25 Pulse Rate (adult): 0 Blood Pressure Systolic: 0 Blood Pressure Diastolic: 0 Circulation #2: Time: 16:35 Pulse Rate (adult): 98 Blood Pressure Systolic: 164 Blood Pressure Diastolic: 68 Temperature (Fahrenheit): 96.5 Circulation Comment: O2sat 92% Procedure - IV Procedure - IV #1: IV Side: Right IV Location: Forearm Anterior IV Catheter Type: Saline Lock IV Placed: In Hospital IV Gauge: 20 IV Line Care: Saline Flush Comment Placed prior to code blue. Procedure - IV #2: IV Side: Right IV Location: Antecubital IV Catheter Type: Saline Lock IV Placed: In Hospital IV Gauge: 20 IV Line Care: Saline Flush Comment Placed prior to code blue. Procedure - IV #3: IV Side: Left IV Location: Antecubital IV Catheter Type: Saline Lock IV Placed: In Hospital IV Gauge: 20 IV Line Care: Saline Flush Comment Placed prior to code blue. Medications & Response Medications and Responses #1: Medication Time: 16:29 ADULT Medications Given ADULT: Epinephrine 1 mg Route of Administration: IV Heart Rate: 0 EKG Rhythm: PEA Blood Pressure Systolic: 0 Blood Pressure Diastolic: 0 EKG Rhythm: Asystole Medications and Responses #2: Medication Time: 16:30 ADULT Medications Given ADULT: Sodium Bacarbinate 50 meq Route of Administration: IV Heart Rate: 0 EKG Rhythm: Asystole Blood Pressure Systolic: 0 Blood Pressure Diastolic: 0 EKG Rhythm: Other (1631: ROSC, unknown rhythym reported) Medications and Responses #3: Medication Time: 16:31 ADULT Medications Given ADULT: Sodium Bacarbinate 50 meq Route of Administration: IV Heart Rate: 98 Procedure - NG/OG Tube Procedure - NG/OG Tube : Type of gastric tube placed: OG Gastric Tube Location: Oral Tube Size: 16 GI Tube Secured: Yes Gastric Tube Suction Type/Desc: Clamped Comment Placed prior to code blue. Procedure - Central Venous Cat Central venous catheter site: Lt IJ Comment: Placed prior to code blue. Procedure - Gillis Catheter Urinary Catheter Type/Location: Uretheral (Gillis) Urinary Catheter Size: 16 Nurses Notes [place] Coma Scale Eye Opening: None (1) [place] Coma Scale Verbal: None (1) [place] Coma Scale Motor: None (1) Glascow Total: 3 Pupil Reaction: Non Reactive Bedside Blood Glucose: 165 EKG Rhythm: PEA, Asystole, Other Nurses Notes - Comment: Patient on multiple pressors and sedation. See EMAR for further details. Time Code Ended Time Code Ended: 16:40 Post Arrest Status: Ventilated Outcome of code: Successful Family notified: Yes Attending called: Yes (Dr. De La Rosa) Code Team Present: Randa RN, Katheryn Rn, Veronica RN, Deborah RN, Daysi Childs MD, Dr. Watt, Dr. De La Rosa, Dr. Villafana, Dr. Gross, Fidelia RN, Benjie RN, Dr. Andujar, Mary Jo RN, Steven RT, Briseyda RT, Joseline RN Comment: This code blue entered on behalf of Katheryn Conde RN who collected data. This marketing underwriter was not present. Post Resuscitation Neurologica Pupil Size: 4 Comment: Equal fixed and dilated. ROSC Time of ROSC: 16:31 Date of Service: Apr 19, 2025 Billing Provider: MIKE DE LA ROSA MD Common Visit Codes: PROCEDURE ONLY Procedure Codes: [id number] CODE BLUE Radha Esteves Apr 20, 2025 10:27 MIKE DE LA ROSA MD Apr 22, 2025 12:28
--- NOTE | 2025-04-20 13:06 | ECG ---
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
--- NOTE | 2025-04-20 13:06 | ECG ---
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
--- NOTE | 2025-04-20 15:23 | DVHNC2 ---
Intubation Indication: Altered Mental Status Pretreated with: Sedation Medicated with: Nothing Intubation Approach: Orotracheal Intubation size: cm (8) Informed consent obtained: No Risks/benefits/alt described: No Date of Service: Apr 19, 2025 Billing Provider: MIKE DE LA ROSA MD Common Visit Codes: PROCEDURE ONLY Procedure Codes: [id number] MIKE DE LA ROSA MD Apr 20, 2025 15:23
--- NOTE | 2025-04-20 17:58 | DVHDS2 ---
Summary Date of Admission Apr 17, 2025 at 21:30 Date and Time of Expiration: Apr 20, 2025 00:33 Labs/Diagnostic Data: Laboratory Results Test 04/19/25 23:40 04/19/25 23:24 04/19/25 21:48 04/19/25 18:51 POC Glucose 152 mg/dl (70-106) Blood Gas Specimen Type Arterial Blood Gas Sample Site Right brachial Blood Gas Patient Temperature 37.0 Arterial Blood Date Drawn [id number] Arterial Blood pH 6.812 (7.350-7.450) Arterial Blood Partial Pressure CO2 33.1 mmHg (35.0-48.0) Arterial Blood Partial Pressure O2 88.6 mmHg (83.0-108.0) Arterial Blood HCO3 5.2 mmol/L (21.0-28.0) Arterial Blood Oxygen Saturation 92.9 % (94.0-98.0) Arterial Blood Base Excess -27.2 mmol/L (-2.0-3.0) Arterial Blood Oxyhemoglobin 91.1 % (94.0-98.0) Arterial Blood Carboxyhemoglobin 1.6 % (0.5-1.5) Arterial Blood Methemoglobin 0.3 % (0.0-1.5) Dutch Test N/a Blood Gas Total Hemoglobin 7.20 g/dL (13.5-17.5) Blood Gas Set Respiration Rate 30.0 Blood Gas Modality Vent - ac FiO2 % 50.0 Blood Gas Tidal Volume 600.0 Blood Gas PEEP or CPAP 5.0 Blood Gas Critical Value Read Back Yes Blood Gas Notified Whom Dr. juan carlos shaw Blood Gas Notified Time [id number] Blood Gas Notified By [facility] White Blood Count 31.0 10^3/uL (4.4-10.8) Red Blood Count 2.23 10^6/uL (4.5-5.90) Hemoglobin 5.7 g/dL (13.5-17.5) Hematocrit 19.4 % (41.0-53.0) Mean Corpuscular Volume 87.0 fL (80.0-100.0) Mean Corpuscular Hemoglobin 25.7 pg (28.0-32.0) Mean Corpuscular Hemoglobin Concent 29.5 g/dL (32.0-36.0) Red Cell Distribution Width 18.5 % (11.8-14.3) Platelet Count 150 10^3/uL (140-450) Mean Platelet Volume 8.2 fL (6.9-10.8) Neutrophils (%) (Auto) % (37.0-80.0) Lymphocytes (%) (Auto) % (10.0-50.0) Monocytes (%) (Auto) % (0.0-12.0) Basophils (%) (Auto) % (0.0-2.0) Neutrophils # (Auto) 10 ^3/uL (1.6-8.6) Lymphocytes # (Auto) 10 ^3/uL (0.4-5.4) Monocytes # (Auto) 10 ^3/uL (0-1.3) Differential Total Cells Counted 100.0 (100) Neutrophils % (Manual) 74 (37.0-80.0) Band Neutrophils % (Manual) 4 Lymphocytes % (Manual) 15 (10.0-50.0) Monocytes % (Manual) 2 (0-12) Eosinophils % (Manual) 0 (0-7) Basophils % (Manual) 0 (0.0-2.0) Metamyelocytes % (manual) 1 Myelocytes % (Manual) 3 Promyelocytes % (Manual) 0 Blast Cells % (Manual) 1 Reactive Lymphocytes 0 Platelet Estimate Adequate Anisocytosis (manual) Slight [place] Cells Moderate Prothrombin Time 19.1 sec (9.3-11.8) Prothrombin Time INR 1.92 (0.9-1.15) Activated Partial Thromboplast Time 128.8 SEC (24.5-34.5) Sodium Level 150 mmol/L (136-145) Potassium Level 5.6 mmol/L (3.5-5.1) Chloride Level 115 mmol/L (98-107) Carbon Dioxide Level < 10 mmol/L (20-31) Anion Gap 25.25440 (5-15) Blood Urea Nitrogen 67 mg/dL (9-23) Creatinine 2.79 mg/dL (0.700-1.30) Glomerular Filtration Rate Calc 26 mL/min (>90) BUN/Creatinine Ratio 24.0 (10.0-20.0) Serum Glucose 236 mg/dL (74-106) Calcium Level 7.0 mg/dL (8.7-10.4) Magnesium Level 3.0 mg/dL (1.6-2.6) Total Bilirubin 0.7 mg/dL (0.2-1.0) Aspartate Amino Transferase (AST) U/L (13-40) Alanine Aminotransferase (ALT) 480 U/L (7-40) Alkaline Phosphatase 205 U/L (46-116) Total Protein 3.4 g/dL (5.7-8.2) Albumin 1.3 g/dL (3.2-4.8) Lactic Acid Level 11.8 mmol/L (0.4-2.0) Test 04/19/25 16:53 04/19/25 05:17 04/19/25 04:15 04/19/25 02:02 Thyroid Stimulating Hormone (TSH) 11.26 uIU/mL (0.55-4.78) Phosphorus Level 4.4 mg/dL (2.4-5.1) Creatine Kinase 1114 U/L (46-171) Vitamin B12 Level 3246 pg/mL (211-911) Vitamin D 25-Hydroxy 14.8 ng/mL (30.0-100) Parathyroid Hormone (Intact) 180.6 pg/mL (18.4-80.1) Random Vancomycin Level 18.4 ug/mL (5-10) Eosinophils (%) (Auto) 0.9 % (0.0-7.0) Eosinophils # (Auto) 0.2 10 ^3/uL (0-0.8) Basophils # (Auto) 0 10 ^3/uL (0-0.2) Nucleated Red Blood Cells 0.1 % Test 04/18/25 05:17 04/18/25 02:24 04/17/25 13:00 Hypochromasia (manual) Moderate Microcytosis Moderate Ovalocytes Few Reticulocyte Count (auto) 1.29 % (0.5-1.5) Hemoglobin A1c 9.9 % A1C (<5.7) Iron Level 12 ug/dL (65-175) Total Iron Binding Capacity 203 ug/dL (250-425) Percent Iron Saturation 5.9 % (20-55) Ferritin 102.0 ng/mL (22-322) Lactate Dehydrogenase 141 U/L (120-246) Troponin I High Sensitivity 33 ng/L (</=54) B-Type Natriuretic Peptide 1174.26 pg/mL (0-100) Other Laboratory Tests 04/19/25 21:48 Brief Hx & Hospital Course: This is a 54-year-old male patient with type 2 diabetes mellitus, hypertension, ? history of intubation and cardiac arrest 20 years back, bed-bound/wheelchair-bound, multiple decubitus ulcers, urinary and bowel incontinence, not on any medications who was brought to the ER by family for the evaluation of left groin draining wound and scrotal swelling for the past 4 weeks, patient reports that it started as swelling of scrotum which increased in size, later popped open and started to drain purulent material with foul smelling. He denies fever but reports chills, generalized weakness low appetite. Denies shortness of breaths or abdominal pain. Past medical/surgical history: type 2 diabetes mellitus, hypertension, history of intubation and cardiac arrest 20 years back, bed-bound/wheelchair-bound, multiple decubitus ulcers, urinary and bowel incontinence, not on any medications Home medications: Denies Social history: Lives with , son, denies smoking/drinking/drug use PCP: Dr. Lamb On arrival to the ER, patient was septic, CT abdomen showing possible necrotizing fasciitis versus necrotizing superficial infection, patient was Requiring Levophed at 4 mcg. IV Zosyn/clindamycin/vanc started. Received NS bolus, followed by maintenance fluids, surgery consulted - Patient underwent Sharp excisional debridement of left groin, left medial thigh, left buttock, left ischiorectal fossa 04/18, postop patient requiring 2 pressors, subsequently, patient was alert in the morning, reported pain to the postoperative area, on Levophed, more necrotic tissue seen in the left gluteal area during examination along with Dr. Rolon, underwent re-debridement - Biceps femoris and vastus lateralis muscle were completely bare without fascia after the excisional debridement. Surgeon Also had to excise part of the gluteus clari muscle as it was . Patient kept decompensating during the procedure, he was on maximum Levophed and vasopressin was added. Patient kept going in and out of AFib. At this point surgeon decided to terminate the procedure due to patient instability. Hemostasis was achieved with electrocautery. Wound was copiously irrigated with Betadine saline wash, postop, received adenosine for SVT, underlying rhythm AFib, cardiology consulted-started IV Amiodarone, intubated postop, underwent cardiac arrest and CPR post intubation, ABG showing severe metabolic acidosis, patient started on bicarb D5W drip. Pushes of bicarb given during code. Family included , daughter and a son was constantly updated regarding patient's critical condition and prognosis, patient had severe metabolic acidosis, patient coded again later that night, pupils were nonreactive to light and dilated, family decided to terminally wean the patient and code status was change to comfort measures and DNR, patient 3204/20/2025 Consults/Reason for consult Surgeon for necrotizing fasciitis Cardiology for AFib Urology for emphysematous cystitis Nephrology for JUAN CARLOS Operations or Procedures Operative Report - 2 Report Details Date: 04/19/25 Preop Diagnosis: Necrotizing fasciitis of the pelvic floor, pelvic organs, and gluteus muscle Postop Diagnosis: Necrotizing fasciitis extending into the thigh muscles, upper segment of femur/ileum, coccyx, pelvic floor Surgeon: Arben Lynne MD Anesthesiologist: Dr. Reynolds Anesthesia: Mac Consent: The patient was informed of the risks and benefits of the procedure. These include but are not limited to complications of anesthesia, postoperative infection, incomplete relief of symptoms, recurrence of symptoms, damage to blood vessels, nerves and tendons, deep venous thrombosis, pulmonary embolism and possible need for repeat surgery in the future. Estimated Blood Loss: 200 mL Findings: Necrotizing fasciitis involving more of the gluteal muscle fascia and subcutaneous tissue, extending more me immediately into the anterior rectal fat, extending into the left thigh muscles Indications for Surgery: Actively spreading infection Name of Procedure Performed Sharp excisional debridement of all tissue, muscle, fascia Procedure Details Procedure Details: Upon arrival to the operating room patient was transferred to the operating table. And placed in the right lateral decubitus position. Monitored anesthesia care was established. Time-out was observed. Previous dressing was removed. Patient was prepped and draped in the standard sterile surgical fashion with Betadine-Betadine. I then directed my attention to the left gluteal area that was exposed through the previous wound, patient had necrotic tissue all throughout. Tissue was sharply excised until healthy bleeding tissue. I then did further sharp excisional debridement on the left perirectal area, and extended it onto the anterior rectal area. I also sharply excised more fascia from the pelvic floor musculature outer surface. I then noted some purulent fluid and crepitus from the posterior thigh area. I then extended the incision to the posterior thigh area up to approximately half the thigh. I then sharply excised all the fascia, muscle, subcu tissue from all that area. Biceps femoris and vastus lateralis muscle were completely bare without fascia after the excisional debridement. Also had to excise part of the gluteus clari muscle as it was . Patient kept decompensating during the procedure, he was on maximum Levophed and vasopressin was added. Patient kept going in and out of AFib. At this point I decided to terminate the procedure due to patient instability. Hemostasis was achieved with electrocautery. Wound was copiously irrigated with Betadine saline wash. Wound was then packed with 5 rolls of Kerlix soaked in Dakin's 0.25% solution. Dressed with 4 x 4 gauze ABD pads and tape. All counts complete and correct at the end of the procedure. Patient did not tolerate the procedure well and was transferred to PACU in critical condition. Wound measurement at the end was 24 cm in length by 20 cm wide. Specimen: Cultures taken Condition Critical Disposition 2 Still a Patient OPERATIVE REPORT ADDENDUM Name: MIKE LEDESMA Acct: [id number] Addendum: ARBNE GUTHRIE MD on 04/19/25 @ 16:40 I made a 3-4 cm incision on the medial aspect of the left thigh over an area of bogginess/fluctuance, for assessment. This was carried down to fascia, no necrosis or dishwater fluid seen. No further debridement in this area was made. _ ____ ADDENDUM ELECTRONICALLY SIGNED BY: Operative Report - 2 Report Details Date: 04/18/25 Preop Diagnosis: Necrotizing soft tissue infection Postop Diagnosis: Necrotizing fasciitis Surgeon: Arben Lynne MD Anesthesiologist: Dr. Anders Anesthesia: Mac Consent: The patient was informed of the risks and benefits of the procedure. These include but are not limited to complications of anesthesia, postoperative infection, incomplete relief of symptoms, recurrence of symptoms, damage to blood vessels, nerves and tendons, deep venous thrombosis, pulmonary embolism and possible need for repeat surgery in the future. Estimated Blood Loss: 50 mL Findings: Necrotizing fasciitis that extended to the left rectum, pelvic floor, medial thigh muscles Indications for Surgery: Necrotizing infection Name of Procedure Performed Sharp excisional debridement of left groin, left medial thigh, left buttock, left ischiorectal fossa Procedure Details Procedure Details: Upon arrival to the operating room patient was transferred to the operating table. General endotracheal anesthesia was induced, time-out was observed, patient was then placed in the lithotomy position. Patient was prepped and draped in the standard sterile surgical fashion with Betadine-Betadine. I then directed my attention to the left groin open wound with necrotic tissue. Wound was approximally 7 cm in length with necrotic tissue at the center, he also had another small wound in the perineal area with necrotic tissue. I then connected the perineal wound to the left groin wound. Cultures taken. All necrotic tissue was sharply excised. Wound had to be extended into the left buttock area, as there was some more necrotic tissue in that area. I sharply excised all necrotic skin/subcutaneous fat/fascia from the wound. Final Wound is approximately 13 x 10 cm and extends from the lateral left scrotum (Dartos intact), to the sphincter muscle complex in the anus/rectum on the left, to the pelvic floor muscle, to the ischium bone on the left, to the medial aspect of the left gluteus clari and to the the medial thigh musculature. I removed all subcutaneous fat and fascia from the left ischiorectal fossa, the fascia overlying the sphincter muscle complex, the fascia of part of the pelvic floor muscle, the medial fascia of the gluteus clari. Wound was then copiously irrigated. Hemostasis achieved with the cautery device. No further necrotic tissue seen. At this point procedure was concluded. All counts complete and correct. Wound was packed with Dakin's 0.5% soaked Kerlix gauze x2, dressed with 4 x 4 gauze/ABD pad/tape. Patient was maxed on Levophed at the end of the procedure. Patient was transferred to PACU in critically stable condition, awaiting ICU bed. Specimen: Cultures taken Final Diagnosis/Problems List Septic shock secondary to Necrotizing fasciitis extending into the thigh muscles, upper segment of femur/ileum, coccyx, pelvic floor Acute metabolic encephalopathy secondary to above status post intubation and mechanical ventilation Severe anion gap metabolic acidosis AFib with RVR - CHADS2 Vasc score 3-new onset Likely anoxic brain injury Status post cardiac arrest Probable congestive heart failure Volume overload Lactic acidosis Probable Aspiration pneumonia JUAN CARLOS secondary to hemodynamically mediated/VMN Likely left renal mass questionable unspecified ? Chronic kidney disease Likely Acute complicated cystitis Anemia likely iron-deficiency anemia/chronic kidney disease Requiring blood transfusion Severe protein calorie malnutrition, albumin Uncontrolled Diabetes mellitus type 2-A1c 9.9 History of multiple herniated discs Decubitus ulcer present on admission Bed-bound/wheelchair-bound Urinary and bowel incontinence History of hypertension Transaminitis likely shock liver Vitamin-D deficiency Discharge Disposition: at Hospital HALEY DELANEY RESIDENT Apr 20, 2025 17:58
== END 2025-04-20 00:33 | DRG 853 ==
LOC: ER 10:51 → OVERFLOW 21:30 → ICU CENTRL 04-18 19:22 → ICU WEST 04-19 17:39
PROVIDERS: ADMIT Internal Medicine; ATTEND Internal Medicine
PROC: 0JB90ZZ Excision of Buttock Subcutaneous Tissue and Fascia, Open Approach (ICD-10-PCS; 2025-04-18)
PROC: 0JBM0ZZ Excision of Left Upper Leg Subcutaneous Tissue and Fascia, Open Approach (ICD-10-PCS; 2025-04-18)
PROC: 302A3N1 Transfusion of Nonautologous Red Blood Cells into Bone Marrow, Percutaneous Approach (ICD-10-PCS; 2025-04-18)
PROC: 02HV33Z Insertion of Infusion Device into Superior Vena Cava, Percutaneous Approach (ICD-10-PCS; 2025-04-18)
PROC: 0JBC0ZZ Excision of Pelvic Region Subcutaneous Tissue and Fascia, Open Approach (ICD-10-PCS; principal; 2025-04-18 11:02)
PROC: 0KBP0ZZ Excision of Left Hip Muscle, Open Approach (ICD-10-PCS; 2025-04-19)
PROC: 0KBR0ZZ Excision of Left Upper Leg Muscle, Open Approach (ICD-10-PCS; 2025-04-19)
PROC: 5A1935Z Respiratory Ventilation, Less than 24 Consecutive Hours (ICD-10-PCS; 2025-04-19)
PROC: 0BH17EZ Insertion of Endotracheal Airway into Trachea, Via Natural or Artificial Opening (ICD-10-PCS; 2025-04-19)
PROC: 0D9670Z Drainage of Stomach with Drainage Device, Via Natural or Artificial Opening (ICD-10-PCS; 2025-04-19)
PROC: 5A12012 Performance of Cardiac Output, Single, Manual (ICD-10-PCS; 2025-04-20)
DX: A41.02 Sepsis due to Methicillin resistant Staphylococcus aureus (principal); E43 Unspecified severe protein-calorie malnutrition; M72.6 Necrotizing fasciitis; R65.21 Severe sepsis with septic shock; N17.0 Acute kidney failure with tubular necrosis; G93.41 Metabolic encephalopathy; J69.0 Pneumonitis due to inhalation of food and vomit; K72.00 Acute and subacute hepatic failure without coma; G82.20 Paraplegia, unspecified; I48.92 Unspecified atrial flutter; D68.9 Coagulation defect, unspecified; R18.8 Other ascites; E87.20 Acidosis, unspecified; G93.1 Anoxic brain damage, not elsewhere classified; R65.20 Severe sepsis without septic shock; I46.9 Cardiac arrest, cause unspecified; E11.9 Type 2 diabetes mellitus without complications; L89.90 Pressure ulcer of unspecified site, unspecified stage; R16.2 Hepatomegaly with splenomegaly, not elsewhere classified; N30.90 Cystitis, unspecified without hematuria; D64.9 Anemia, unspecified; I48.91 Unspecified atrial fibrillation; I25.10 Atherosclerotic heart disease of native coronary artery without angina pectoris; Z99.3 Dependence on wheelchair; Z74.01 Bed confinement status; I50.9 Heart failure, unspecified; N18.9 Chronic kidney disease, unspecified; E55.9 Vitamin D deficiency, unspecified; E87.70 Fluid overload, unspecified
CPT/HCPCS: 36415; 36430; 36600; 71045; 74176; 76775; 80048; 80053; 80202; 82306; 82550; 82565; 82607; 82728; 82805; 82962; 83036; 83540; 83550; 83605; 83615; 83735; 83880; 83970; 84100; 84443; 84484; 85007; 85014; 85018; 85025; 85027; 85045; 85610; 85730; 86850; 86900; 86901; 86920; 87040; 87070; 87075; 87076; 87077; 87081; 87186; 87205; 92950; 93005; 93306; 94002; 94640; 96365; 99291; G0378; J0169; J0330; J0694; J1815; J2185; J2250; J2405; J2470; J2543; J2704; J3480; J3490